=== PATIENT | male | born 1950 | race Caucasian/White ===

== ENCOUNTER → 2018-03-21 | Outpatient (CLI) | payer MEDICARE ==
--- NOTE | 2018-03-21 15:36 | XCELERA REPORT ---
[address] [address] Lower Extremity Venous Evaluation Name: PHILLY PIERRE Age: 67 yrs Gender: Male : 1950 Patient Status: Outpatient Patient Location: Study Date: 03/21/2018 01:39 PM Procedure: Color flow and duplex imaging of the veins of the right lower extremity as well as the left Common Femoral vein. Reason For Study: RLE PAIN Ordering Physician: CHANTELL VELASQUEZ Performed By: Carlyle Carolina Right Sided Venous Evaluation Normal vessel filling wall to wall, compression and augmentation as well as Colour flow down to the infrageniculate veins. Left Sided Venous Evaluation The left common femoral vein is fully compressible. Spontaneous and phasic flow is present in the left common femoral vein. Interpretation Summary No duplex evidence of DVT or obstruction in the right lower extremity nor in the left Common Femoral vein. : CHANTELL VELASQUEZ > Julius Painter
== END ==
LOC: SP 12:40
PROVIDERS: ATTEND Orthopaedic Surgery
DX: M79.661 Pain in right lower leg (principal)
CPT/HCPCS: 93971

== ENCOUNTER → 2018-03-21 | Outpatient (CLI) | payer MEDICARE ==
[2018-03-21 15:08] LABS: ABSOLUTE BASOPHILS # (AUTO) 0.1 10^3/uL (0.0-0.2); ABSOLUTE EOSINOPHILS # (AUTO) 0.3 10^3/uL (0.0-0.6); ABSOLUTE LYMPHOCYTES (AUTO) 1.7 10^3/uL (0.5-4.7); ABSOLUTE MONOCYTES (AUTO) 0.6 10^3/uL (0.1-1.4); ABSOLUTE NEUT (AUTO) 6.5 10^3/uL (1.7-8.2); BASOPHILS % (AUTO) 1.2 % (0-2); EOSINOPHILS % (AUTO) 3.6 % (0-6); HEMATOCRIT 37.2 % (37.9-51.0); HEMOGLOBIN 12.5 g/dL (13.5-17.0); LYMPHOCYTES % (AUTO) 18.1 % (13-45); MEAN CORPUSCULAR HEMOGLOBIN 29.3 pg (27.0-33.4); MEAN CORPUSCULAR HGB CONC 33.5 g/dL (32.0-36.0); MEAN CORPUSCULAR VOLUME 88 fl (80-97); MONOCYTES % (AUTO) 6.8 % (3-13); RED BLOOD COUNT 4.25 10^6/uL (4.35-5.55); RED CELL DISTRIBUTION WIDTH 14.7 % (11.5-14.0); SEGMENTED NEUTROPHILS % (AUTO) 70.3 % (42-78); TOTAL CELLS COUNTED % (AUTO) 100 %; WHITE BLOOD COUNT 9.2 10^3/uL (4.0-10.5)
[2018-03-21 15:35] LABS: CALCIUM PYROPHOSPHATE CRYSTALS NONE OBSERVED; MONOSODIUM URATE CRYSTALS NONE OBSERVED; OTHER CRYSTALS NONE OBSERVED
[2018-03-21 15:52] LABS: PLATELET COUNT 218 10^3/uL (150-450)
[2018-03-21 16:00] LABS: FLUID APPEARANCE TURBID; FLUID COLOR RED; FLUID SOURCE KNEE; FLUID TYPE SYNOVIAL; FLUID VISCOSITY SLIGHTLY VISCOUS
[2018-03-21 16:03] LABS: ERYTHROCYTE SEDIMENTATION RATE 27 mm/hr (0-20)
== END ==
LOC: OD 14:14
PROVIDERS: ATTEND Orthopaedic Surgery
DX: M25.561 Pain in right knee (principal); R60.9 Edema, unspecified; M25.50 Pain in unspecified joint
CPT/HCPCS: 36415; 85025; 85652; 86140; 87070; 87075; 87205; 89050; 89060

== ENCOUNTER 2018-05-21 13:54 | Emergency (ER) | payer MEDICARE ==
[2018-05-21 14:03] VITALS: BP 130/70
--- NOTE | 2018-05-21 14:16 | ER Document Report ---
ED Burn/Smoke/Toxic Fumes - General Chief Complaint: Burn Stated Complaint: BURN LEFT ARM AND CHEST Time Seen by Provider: 05/21/18 14:07 Mode of Arrival: Ambulatory Information source: Patient TRAVEL OUTSIDE OF THE [place] IN LAST 30 DAYS: No - HPI Patient complains to provider of: Burn Where: Home Quality of pain: Burning Severity: Mild Pain Level: 1 Context: Hot liquid Associated Symptoms: None Other injuries: None - Related Data Allergies/Adverse Reactions: codeine [Codeine] Allergy (Unknown, Verified 10/29/13 06:28) Past Medical History - Social History Smoking Status: Unknown if Ever Smoked Family History: Reviewed & Not Pertinent Patient has suicidal ideation: No Patient has homicidal ideation: No - Past Medical History Cardiac Medical History: Reports: Hx Hypercholesterolemia, Hx Hypertension Endocrine Medical History: Reports: Hx Diabetes Mellitus Type 2 Renal/ Medical History: Denies: Hx Peritoneal Dialysis GI Medical History: Reports: Hx Gastroesophageal Reflux Disease Past Surgical History: Reports: Hx Gastric Bypass Surgery, Hx Orthopedic Surgery - Left Knee Sx x 4 - Immunizations Hx Diphtheria, Pertussis, Tetanus Vaccination: - unknown Review of Systems - Review of Systems Constitutional: denies: Chills, Fever EENT: No symptoms reported Cardiovascular: No symptoms reported Respiratory: denies: Cough, Short of breath Gastrointestinal: No symptoms reported. denies: Abdominal pain, Diarrhea, Nausea, Vomiting Genitourinary: No symptoms reported Male Genitourinary: No symptoms reported Musculoskeletal: No symptoms reported Skin: Lesions Hematologic/Lymphatic: denies: Anemia, Easy bleeding Neurological/Psychological: No symptoms reported -: Yes All other systems reviewed and negative Physical Exam - Vital signs Vitals: Temp Pulse Resp BP Pulse Ox 97.6 F 98 28 H 130/70 H 99 05/21/18 14:01 05/21/18 14:01 05/21/18 14:01 05/21/18 14:01 05/21/18 14:01 - General General appearance: Appears well, Alert In distress: None - HEENT Head: Normocephalic, Atraumatic Eyes: Normal Pupils: PERRL - Respiratory Respiratory status: No respiratory distress Chest status: Nontender Breath sounds: Normal Chest palpation: Normal - Cardiovascular Rhythm: Regular Heart sounds: Normal auscultation Murmur: No Notes: First degree burn to the anterior chest wall. - Abdominal Inspection: Normal Distension: No distension Bowel sounds: Normal Tenderness: Nontender Organomegaly: No organomegaly - Back Back: Normal, Nontender - Extremities Forearm: Other - Second-degree burn to the left forearm. - Neurological Neuro grossly intact: Yes Cognition: Normal Orientation: AAOx4 [place] Coma Scale Eye Opening: Spontaneous Sveta Coma Scale Verbal: Oriented [place] Coma Scale Motor: Obeys Commands Sveta Coma Scale Total: 15 Speech: Normal Motor strength normal: LUE, RUE, LLE, RLE Sensory: Normal - Psychological Associated symptoms: Normal affect, Normal mood - Skin Skin Temperature: Warm Skin Moisture: Dry Irregularity with: Other - Second-degree burn to the left forearm. Course - Vital Signs Vital signs: Temp Pulse Resp BP Pulse Ox 97.6 F 98 19 130/70 H 99 05/21/18 14:01 05/21/18 14:01 05/21/18 14:33 05/21/18 14:01 05/21/18 14:01 - Transfer of Care Notes: 05/21/18 15:37 First and second-degree burn. Discharge - Discharge Clinical Impression: Second degree burn injury Condition: Stable Disposition: HOME, SELF-CARE Instructions: [facility] ([facility]) Additional Instructions: Please follow-up with your primary doctor tomorrow morning. Return to the emergency room if her condition worsens. Prescriptions: Mupirocin [Bactroban 2% Ointment 22 gm] 22 applic TP TID #1 tube Referrals: CHANTELL VELASQUEZ MD [Primary Care Provider] - Follow up as needed
== END 2018-05-21 14:33 | disposition home or self-care (01) ==
LOC: ER 13:54
DX: T21.11XA Burn of first degree of chest wall, initial encounter (principal); T22.212A Burn of second degree of left forearm, initial encounter; T31.0 Burns involving less than 10% of body surface; X12.XXXA Contact with other hot fluids, initial encounter
CPT/HCPCS: 99283

== ENCOUNTER → 2018-06-17 | Outpatient (CLI) | payer MEDICARE ==
[2018-06-17 09:57] LABS: ABSOLUTE BASOPHILS # (AUTO) 0.1 10^3/uL (0.0-0.2); ABSOLUTE EOSINOPHILS # (AUTO) 0.5 10^3/uL (0.0-0.6); ABSOLUTE LYMPHOCYTES (AUTO) 2.5 10^3/uL (0.5-4.7); ABSOLUTE MONOCYTES (AUTO) 0.9 10^3/uL (0.1-1.4); ABSOLUTE NEUT (AUTO) 4.9 10^3/uL (1.7-8.2); BASOPHILS % (AUTO) 0.9 % (0-2); EOSINOPHILS % (AUTO) 5.9 % (0-6); HEMATOCRIT 37.4 % (37.9-51.0); HEMOGLOBIN 12.6 g/dL (13.5-17.0); LYMPHOCYTES % (AUTO) 27.6 % (13-45); MEAN CORPUSCULAR HGB CONC 33.6 g/dL (32.0-36.0); MEAN CORPUSCULAR VOLUME 86 fl (80-97); MONOCYTES % (AUTO) 10.3 % (3-13); PLATELET COUNT 311 10^3/uL (150-450); RED BLOOD COUNT 4.33 10^6/uL (4.35-5.55); RED CELL DISTRIBUTION WIDTH 13.7 % (11.5-14.0); SEGMENTED NEUTROPHILS % (AUTO) 55.3 % (42-78); TOTAL CELLS COUNTED % (AUTO) 100 %; WHITE BLOOD COUNT 8.9 10^3/uL (4.0-10.5)
[2018-06-17 10:07] LABS: INTERNATIONAL RATION (INR) 0.93; PROTHROMBIN TIME 12.9 SEC (11.4-15.4)
[2018-06-17 10:24] LABS: APPEARANCE,URINE CLEAR; BILIRUBIN,URINE NEGATIVE (NEGATIVE); COLOR,URINE YELLOW; GLUCOSE, URINE NEGATIVE (NEGATIVE); KETONES,URINE NEGATIVE (NEGATIVE); LEUKOCYTE ESTERASE,URINE NEGATIVE (NEGATIVE); NITRITE,URINE NEGATIVE (NEGATIVE); PROTEIN,URINE NEGATIVE (NEGATIVE)
[2018-06-17 10:25] LABS: URINE SPECIFIC GRAVITY 1.019
== END ==
LOC: OD 08:56
PROVIDERS: ATTEND Pain Medicine Interventional Pain Medicine
DX: D68.8 Other specified coagulation defects (principal)
CPT/HCPCS: 36415; 81001; 85025; 85610; 85730

== ENCOUNTER 2018-07-29 08:42 | Day surgery (SDC) | payer MEDICARE ==
[2018-07-09 12:57] LABS: HEMATOCRIT 38.7 % (37.9-51.0); HEMOGLOBIN 12.6 g/dL (13.5-17.0); MEAN CORPUSCULAR HEMOGLOBIN 28.2 pg (27.0-33.4); MEAN CORPUSCULAR HGB CONC 32.6 g/dL (32.0-36.0); MEAN CORPUSCULAR VOLUME 86 fl (80-97); PLATELET COUNT 287 10^3/uL (150-450); RED BLOOD COUNT 4.47 10^6/uL (4.35-5.55); RED CELL DISTRIBUTION WIDTH 14.1 % (11.5-14.0); WHITE BLOOD COUNT 8.7 10^3/uL (4.0-10.5)
[2018-07-09 13:03] LABS: INTERNATIONAL RATION (INR) 0.94
[2018-07-09 13:04] LABS: PARTIAL THROMBOPLASTIN TIME 36.6 SEC (23.5-35.8)
--- NOTE | 2018-07-09 19:19 | EKG REPORT ---
SEVERITY:- OTHERWISE NORMAL ECG - SINUS RHYTHM ATRIAL PREMATURE COMPLEX : Confirmed by: Matilde Fischer MD 09-Jul-2018 19:18:51
[2018-07-10 13:04] LABS: APPEARANCE,URINE CLEAR; BILIRUBIN,URINE NEGATIVE (NEGATIVE); COLOR,URINE YELLOW; GLUCOSE, URINE NEGATIVE (NEGATIVE); KETONES,URINE NEGATIVE (NEGATIVE); LEUKOCYTE ESTERASE,URINE NEGATIVE (NEGATIVE); NITRITE,URINE NEGATIVE (NEGATIVE); PROTEIN,URINE NEGATIVE (NEGATIVE); URINE SPECIFIC GRAVITY 1.021
[~2018-07-29 08:42] MED LIST: CEFAZOLIN 1 GM/D5W RTU 1 GM/50 ML RTUPB IV PRN; LACTATED RINGERS 1000 ML IV PRN
[2018-07-29] MEDS ORDERED: CEFAZOLIN 1 GM/D5W RTU 1 GM/50 ML RTUPB IV ONE (09:41)
[2018-07-29] MEDS ORDERED: FAMOTIDINE INJ/PF 20 MG/2 ML SDV IV ONE (09:56)
[2018-07-29] MEDS ORDERED: ALBUTEROL SULFATE 0.083% NEB 2.5 MG/3 ML AMPUL NEB ONE (10:06)
[2018-07-29] MEDS ORDERED: LIDOCAINE 1% INJ-PF (10 MG/ML) 30 ML SDV ONE (10:23)
[2018-07-29] MEDS ORDERED: SODIUM BICARBONATE 8.4% INJ 50 MEQ/50 ML DISP.SYRIN ONE (10:23)
[2018-07-29] MEDS ORDERED: BUPIVACAINE HCL 0.25% /EPINEPHRINE INJ/PF 30 ML SDV ONE (10:24)
[2018-07-29] MEDS ORDERED: MIDAZOLAM 2 MG/2 ML INJ ONE (11:36)
[2018-07-29] MEDS ORDERED: FENTANYL CITRATE INJ/PF 100 MCG/2 ML AMPUL ONE (11:36)
[2018-07-29] MEDS ORDERED: PROPOFOL INJ 200 MG/20 ML VIAL IV ONE (11:37)
[2018-07-29] MEDS ORDERED: FENTANYL CITRATE INJ/PF 100 MCG/2 ML AMPUL IV PRN ×3 (12:12)
[2018-07-29] MEDS ORDERED: MEPERIDINE HCL/PF INJ 25 MG/1 ML DISP.SYRIN IV PRN (12:12)
[2018-07-29] MEDS ORDERED: PROMETHAZINE HCL INJ 25 MG/1 ML VIAL IV PRN (12:12)
[2018-07-29] MEDS ORDERED: DIPHENHYDRAMINE HCL 50 MG/ML VIAL IV PRN (12:12)
[2018-07-29] MEDS ORDERED: CEFAZOLIN INJ 1 GM VIAL ONE (13:04)
--- NOTE | 2018-07-29 13:54 | RADIOLOGY REPORT (SQ) ---
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 FLUOROSCOPY TIME: 2.9 minutes 17 digital images saved to PACS. TECHNIQUE: Intra-operative images acquired during surgical procedure to evaluate progress. NUMBER OF IMAGES: 17 digital images saved to pac's LIMITATIONS: None. FINDINGS: Intra procedural imaging and fluoro during neurostimulator electrode placement by Dr. Shoaib dillon. Please see the operative report for further details IMPRESSION: Intra procedural imaging and fluoro COMMENT: Quality ID [id number]: Final reports for procedures using fluoroscopy that document radiation exp osure indices, or exposure time and number of fluorographic images (if radiation exposure indices are not available) Please consult full operative report of the attending physician for description of the procedure. TECHNICAL DOCUMENTATION: JOB ID: [id number] [employer]- All Rights Reserved Reading location - IP/workstation name: [email or web address]
--- NOTE | 2018-07-29 13:54 | RADIOLOGY REPORT (SQ) ---
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 FLUOROSCOPY TIME: 2.9 minutes 17 digital images saved to PACS. TECHNIQUE: Intra-operative images acquired during surgical procedure to evaluate progress. NUMBER OF IMAGES: 17 digital images saved to pac's LIMITATIONS: None. FINDINGS: Intra procedural imaging and fluoro during neurostimulator electrode placement by Dr. Shoaib dillon. Please see the operative report for further details IMPRESSION: Intra procedural imaging and fluoro COMMENT: Quality ID 145: Final reports for procedures using fluoroscopy that document radiation exp osure indices, or exposure time and number of fluorographic images (if radiation exposure indices are not available) Please consult full operative report of the attending physician for description of the procedure. TECHNICAL DOCUMENTATION: JOB ID: [id number] [employer]- All Rights Reserved Reading location - IP/workstation name: [email or web address]
[2018-07-29 18:21] VITALS: BP 109/67
--- NOTE | 2018-09-17 09:32 | OPERATIVE REPORT E ---
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 PROCEDURES: 1. Surgical implantation of right and left spinal cord stimulating electrodes under fluoroscopic guidance. 2. Implantation of a reprogrammable, rechargeable [employer]onic pulse generator. 3. Complex programming. SURGEON: SARA ARTEAGA M.D. ANESTHESIA: MAC. PHYSICIAN RELATIONS SPECIALIST: Georgina Atkinson M.D. BLOOD LOSS: Minimal. SPECIMENS REMOVED: None. INDICATION: Successful trial of outpatient spinal cord stimulation. DESCRIPTION OF PROCEDURE: After obtaining informed consent and advising the patient of the risks and benefits, including serious neurological injury, bleeding, infection, aggravation of pain, paralysis, allergic reaction, and , the patient was taken to the operating room and placed comfortably in the prone position. Monitors were applied. MAC anesthesia was administered. He was then prepped with chlorhexidine with appropriate drying time and draped. Fluoroscopy was utilized to evaluate the spine. It should be noted the pulse generator site had been predetermined and marked over the right gluteal region. Using fluoroscopy, the lumbar spine was evaluated and a suitable entrance site to the T12-L1 interspace was identified. Local anesthesia was applied and 1% lidocaine with bicarb to the midline lumbar region as well as to the gluteal region at the pulse generator site. A 0.25% bupivacaine with epinephrine was then applied in the deeper subcutaneous tissues. Sharp and blunt dissection were then performed in both regions to create suitable working zones. Hemostasis was obtained with electrocautery as necessary. In the lumbar region, once a suitable working zone was placed, was used for retraction. The paraspinal musculature then was anesthetized with a spinal needle using 1% lidocaine down to the lamina and ligamentum flavum at the T12-L1 interspace bilaterally. A 14-gauge Tuohy needle was then inserted beginning on the right and then the left. The epidural space was entered without difficulty. Electrodes were then advanced up to the T8 region, as in mid T8 and mid T10 region on both sides. Trial stimulation was initiated and was successful in giving a good pattern of stimulation for the patient. The decision was made to complete the implant. Pursestrings using sling were placed around each needle followed by a distal stay suture. The right needle was then removed as well as the stylette of an electrode. The stay suture was then secured and the pursestring was secured to the anchor. This was repeated on the left. The leads were then tunneled to the pulse generator pocket and connected to the pulse generator without difficulty. All hex nuts were secured. Connectivity and impedance was checked and it was all satisfactory. The wounds were then inspected again for hemostasis. When this was satisfactory, each wound was copiously irrigated with Betadine-containing irrigation solution. The wounds were then closed with 3-0 Mersilene and an inverted vertical mattress suture over the pulse generator followed by Dermabond, tape, and cement with an appropriate occlusive dressing. The lumbar incision was closed with 3 layers using 3-0 Vicryl for deeper and lesions and then skin was closed with elton and occlusive dressing. The patient was then taken to the PACU for further postoperative care and monitoring. He did well and was released for outpatient followup. DICTATING PHYSICIAN: SARA ARTEAGA M.D. [id number] PHY#: [id number] ID: [id number] JOB#: [id number] ACCT: [id number] cc:SARA ARTEAGA M.D. >
--- NOTE | 2018-09-17 09:32 | OPERATIVE REPORT E ---
Operative Report NAME: PHILLY PIERRE : 1950 AGE: 68Y DATE OF SURGERY: 07/29/2048 ROOM: PREOPERATIVE DIAGNOSIS: POST LAMINECTOMY SYNDROME WITH LUMBAR RADICULOPATHY AND CHRONIC PAIN SYNDROME. POSTOPERATIVE DIAGNOSIS: POST LAMINECTOMY SYNDROME WITH LUMBAR RADICULOPATHY AND CHRONIC PAIN SYNDROME. OPERATION: Implantation of spinal cord stimulating system to include rechargeable re-programmable pulse generator and 2 Octrodes, fluoroscopy for needle placement and complex spinal cord stimulating programming. SURGEON: SARA ARTEAGA M.D. RACING MANAGER: Georgina Atkinson MD ANESTHESIA: MAC ESTIMATED BLOOD LOSS: 10 mL. TISSUE REMOVED OR ALTERED: None. INDICATION: Successful outpatient trial of spinal cord stimulation. PROCEDURE: After obtaining informed consent advising the patient of the risks and benefits including serious neurological injury, bleeding, infection, failure to obtain pain relief, lead movement, paralysis, allergic reaction, and he was taken to the operating room and placed comfortably in the prone position. Comfort was assessed visually and verbally. MAC anesthesia was administered. The patient was prepped with Chlorhexidine with the appropriate drying time in 3 minutes prior to draping. After draping, the lumbar spine was evaluated under fluoroscopy and suitable entrance site and location for the incision was identified. Local anesthesia was applied, 1% lidocaine with bicarb to the midline lumbar incision as well as to the right gluteal region at the preselected site for the pulse generator. Sharp and blunt dissection were performed down in both regions. Electrocautery was used as necessary. Suitable working space was created in the lumbar incision and Sarahi was placed to retract the tissues. Using a spinal needle, 22-gauge, with additional 1% lidocaine with bicarb, the tissues deep were anesthetized down to the lumbar lamina at the T12-L1 interspace. Beginning on the left, a 6-inch Touhy needle was inserted and entering into the epidural space without difficulty with a loss of resistance to saline technique. No heme, cerebrospinal fluid, or paresthesias were noted. Octrode was placed through this and advanced nicely in the midline. Lateral view was taken. This was repeated on the right side and again after successful needle placement, the electrode was passed into the epidural space to remain in the posterior location. The leads were then advanced simultaneously up to approximately the mid T8 region. Once suitable lead placement was obtained, a trial of stimulation was initiated. Patient had good stimulation on all desired locations. Pursestrings were placed around each needle followed by distal stay sutures using 0 Mersilene. Beginning on the left, the needle and Stylet of the electrode were removed. The pursestring was secured to the Silastic cylindrical anchor. The stay suture was then tied to the anchor as well. This was repeated on the right without difficulty. Some mild distraction occurred on the left but was still in consistent location from his trial. Both wounds were then copiously irrigated. Tunneling tool utilized after anesthetizing the subcutaneous tissue to bring the leads from the midline incision to the lumbar pocket. The leads were connected to the pulse generator and secured and impedance was checked and was satisfactory. The wounds were further irrigated with beta-containing irrigation solution. The leads were coiled with 1 loop in the lumbar incision and tacked down with 3-0 Ethibond ties. The deep tissues were then closed with the interrupted vertical inverted mattress sutures using 3-0 Polysorb followed by a more superficial layer of the same. The skin was then stapled in a lumbar region. The pulse generator pocket was closed with a single layer of inverted vertical mattress sutures using 3-0 Polysorb followed by Dermabond tape and Cement. Telfa dressings were placed when the Cement was dry. Followed by Tegaderm and sponge dressing. Patient did well and was taken to the PACU for further postoperative care and monitoring. DICTATING PHYSICIAN: SARA ARTEAGA M.D. [id number] PHY#: [id number] ID: [id number] JOB#: [id number] ACCT: [id number] cc:SARA ARTEAGA M.D. >
== END 2018-07-29 15:50 | disposition home or self-care (01) ==
LOC: OROUT 08:42
PROVIDERS: ATTEND Student in an Organized Health Care Education/Training Program
DX: G89.4 Chronic pain syndrome (principal); M54.16 Radiculopathy, lumbar region; M54.5 Low back pain; M25.512 Pain in left shoulder; M19.011 Primary osteoarthritis, right shoulder; M25.511 Pain in right shoulder; Z79.01 Long term (current) use of anticoagulants; Z79.82 Long term (current) use of aspirin; Z79.899 Other long term (current) drug therapy; Z79.51 Long term (current) use of inhaled steroids; Z79.84 Long term (current) use of oral hypoglycemic drugs; J45.909 Unspecified asthma, uncomplicated; I10 Essential (primary) hypertension; Z79.891 Long term (current) use of opiate analgesic; J44.9 Chronic obstructive pulmonary disease, unspecified; E11.9 Type 2 diabetes mellitus without complications; D64.9 Anemia, unspecified; Z88.5 Allergy status to narcotic agent
CPT/HCPCS: 93005; 36415; 82962; 85027; 85610; 85730; 81001; 72080; 93010; 94640; 63685; 63650; C1778; J2250; J3490 ×3; J0690 ×2; J3010; J2704; S0028; A9270; 1936

== ENCOUNTER → 2018-10-15 | Outpatient (CLI) | payer MEDICARE ==
[2018-10-15 12:01] LABS: ABSOLUTE BASOPHILS # (AUTO) 0.1 10^3/uL (0.0-0.2); ABSOLUTE EOSINOPHILS # (AUTO) 0.5 10^3/uL (0.0-0.6); ABSOLUTE LYMPHOCYTES (AUTO) 1.9 10^3/uL (0.5-4.7); ABSOLUTE MONOCYTES (AUTO) 0.8 10^3/uL (0.1-1.4); ABSOLUTE NEUT (AUTO) 6.6 10^3/uL (1.7-8.2); BASOPHILS % (AUTO) 1.2 % (0-2); EOSINOPHILS % (AUTO) 4.8 % (0-6); HEMATOCRIT 35.8 % (37.9-51.0); MEAN CORPUSCULAR HEMOGLOBIN 27.8 pg (27.0-33.4); MEAN CORPUSCULAR HGB CONC 33.6 g/dL (32.0-36.0); MEAN CORPUSCULAR VOLUME 83 fl (80-97); MONOCYTES % (AUTO) 8.2 % (3-13); PLATELET COUNT 292 10^3/uL (150-450); RED BLOOD COUNT 4.33 10^6/uL (4.35-5.55); RED CELL DISTRIBUTION WIDTH 15.1 % (11.5-14.0); SEGMENTED NEUTROPHILS % (AUTO) 66.8 % (42-78); TOTAL CELLS COUNTED % (AUTO) 100 %; WHITE BLOOD COUNT 9.9 10^3/uL (4.0-10.5)
[2018-10-15 12:47] LABS: ERYTHROCYTE SEDIMENTATION RATE 36 mm/hr (0-20)
== END ==
LOC: LAB 11:33
PROVIDERS: ATTEND Physician Assistant
DX: M25.561 Pain in right knee (principal)
CPT/HCPCS: 36415; 85025; 85652; 86140

== ENCOUNTER → 2019-04-03 | Outpatient (CLI) | payer MEDICARE | LOC: RAD 13:44 | PROVIDERS: ATTEND Physician Assistant | DX: M25.561 Pain in right knee (principal); M79.604 Pain in right leg ==

== ENCOUNTER 2019-10-16 09:38 | Inpatient (IN) | payer MEDICARE ==
[2019-10-16] MEDS ORDERED: ACETAMINOPHEN 325 MG TABLET PO ONE (10:45)
--- NOTE | 2019-10-16 10:49 | ER Document Report ---
ED Medical Screen (RME) - General Chief Complaint: Elbow Injury Stated Complaint: FALL/RIGHT ELBOW PAIN Time Seen by Provider: 10/16/19 10:39 Primary Care Provider: SY MENSAH PA [Primary Care Provider] - Follow up as needed TRAVEL OUTSIDE OF THE [place] IN LAST 30 DAYS: No - HPI Notes: 10/16/19 10:45 Patient is a 69-year-old male with a history of chronic back pain, chronic rt shoulder pain, dementia, CVA x2, hypertension, "prediabetic" who presents with complaining of having a dry cough and congestion for the past 2 days with increased generalized weakness associated resulting in a fall prior to arrival. Patient was walking with his walker when he lost balance and fell into a door on his right arm and then slowly to the ground thereafter. He did not hit his head or lose consciousness. Patient states that he did not injure any other part of his body. states that his weakness prevented him from being able to get up on his own so they had to call EMS. Pt is baseline per otherwise. Denies any headache, fever, head injury, neck pain, changes in vision/speech/mentation/hearing, sore throat, chest pain, palpitations, syncope, shortness of breath, wheeze, dyspnea, abdominal pain, nausea/vomiting/diarrhea, urinary retention, dysuria, hematuria, loss of control of bowel or bladder, numbness/tingling, saddle anesthesia, muscle paralysis, or rash. I have treated and performed a rapid initial assessment of this patient. A comprehensive ED assessment and evaluation of the patient, analysis of test results and completion of medical decision making process will be conducted by additional ED providers. PHYSICAL EXAMINATION: GENERAL: Well-appearing, well-nourished and in no acute distress. A&Ox3. Answers questions appropriately. Neck: no midline tenderness. Pelvis: stable RUE: + swelling and ?deformity upper arm with tenderness associated. + tenderness at the elbow and rt forearm as well. Pulse 2+. N/V intact distal. Neuro: cranial nerves grossly intact. GCS 15. Lungs: grossly ctab - Related Data Allergies/Adverse Reactions: codeine [Codeine] Allergy (Unknown, Verified 07/28/18 11:11) zolpidem [From Ambien] Allergy (Verified 07/28/18 11:11) Past Medical History - Past Medical History Cardiac Medical History: Reports: Hx Hypercholesterolemia Denies: Hx Coronary Artery Disease, Hx Heart Attack, Hx Hypertension Pulmonary Medical History: Reports: Hx Asthma Denies: Hx Bronchitis, Hx COPD, Hx Pneumonia Neurological Medical History: Denies: Hx Cerebrovascular Accident, Hx Seizures Endocrine Medical History: Reports: Hx Diabetes Mellitus Type 2 Renal/ Medical History: Denies: Hx Peritoneal Dialysis GI Medical History: Reports: Hx Gastroesophageal Reflux Disease Musculoskeltal Medical History: Denies Hx Arthritis Past Surgical History: Reports: Hx Gastric Bypass Surgery, Hx Orthopedic Surgery - Left Knee Sx x 4 - Immunizations Hx Diphtheria, Pertussis, Tetanus Vaccination: Yes Physical Exam - Vital signs Vitals: Temp Pulse Resp BP Pulse Ox 97.5 F 94 16 103/71 94 10/16/19 10:10/16/19 10:10/16/19 10:10/16/19 10:05 10/16/19 10:05 Course - Vital Signs Vital signs: Temp Pulse Resp BP Pulse Ox 97.5 F 94 16 103/71 94 10/16/19 10:05 10/16/19 10:05 10/16/19 10:05 10/16/19 10:05 10/16/19 10:05 Doctor's Discharge - Discharge Referrals: SY MENSAH PA [Primary Care Provider] - Follow up as needed
[2019-10-16 11:19] LABS: ABSOLUTE LYMPHOCYTES (AUTO) 0.9 10^3/uL (0.5-4.7); ABSOLUTE MONOCYTES (AUTO) 1.1 10^3/uL (0.1-1.4); BASOPHILS % (AUTO) 0.6 % (0-2); EOSINOPHILS % (AUTO) 0.3 % (0-6); HEMATOCRIT 35.4 % (37.9-51.0); HEMOGLOBIN 11.6 g/dL (13.5-17.0); LYMPHOCYTES % (AUTO) 10.8 % (13-45); MEAN CORPUSCULAR HEMOGLOBIN 24.9 pg (27.0-33.4); MEAN CORPUSCULAR HGB CONC 32.8 g/dL (32.0-36.0); MEAN CORPUSCULAR VOLUME 76 fl (80-97); MONOCYTES % (AUTO) 13.6 % (3-13); PLATELET COUNT 370 10^3/uL (150-450); RED BLOOD COUNT 4.65 10^6/uL (4.35-5.55); RED CELL DISTRIBUTION WIDTH 16.6 % (11.5-14.0); SEGMENTED NEUTROPHILS % (AUTO) 74.7 % (42-78); TOTAL CELLS COUNTED % (AUTO) 100 %
[2019-10-16 11:45] LABS: A TYPE INFLUENZA AG NEGATIVE (NEGATIVE); ALBUMIN 3.4 g/dL (3.5-5.0); ALKALINE PHOSPHATASE 169 U/L (38-126); ANION GAP 8 (5-19); ASPARTATE AMINO TRANSFERASE 43 U/L (17-59); B INFLUENZA AG NEGATIVE (NEGATIVE); BILIRUBIN,TOTAL 0.4 mg/dL (0.2-1.3); BLOOD UREA NITROGEN 13 mg/dL (7-20); CARBON DIOXIDE 31 mmol/L (22-30); CHLORIDE 95 mmol/L (98-107); GLUCOSE 106 mg/dL (75-110); POTASSIUM 4.2 mmol/L (3.6-5.0)
--- NOTE | 2019-10-16 11:54 | RADIOLOGY REPORT (SQ) ---
EXAM DESCRIPTION: FOREARM RIGHT COMPLETED DATE/TIME: 10/16/2019 11:45 am REASON FOR STUDY: pain s/p fall COMPARISON: None. NUMBER OF VIEWS: Two views. TECHNIQUE: Two radiographic images acquired of the right forearm, including elbow and wrist in at le ast one projection. LIMITATIONS: None. FINDINGS: MINERALIZATION: Decreased. BONES: No acute fractures or dislocation. Degenerative changes about the wrist and elbow. SOFT TISSUES: No obvious swelling or foreign body. OTHER: Paper clip overlies distal forearm. Metallic density overlies proximal forearm on a single pr ojection. IMPRESSION: No definite acute bony abnormality of the right forearm. Decreased mineralization with degenerative changes about the elbow and wrist. TECHNICAL DOCUMENTATION: JOB ID: [id number] [employer]- All Rights Reserved Reading location - IP/workstation name: [email or web address]
--- NOTE | 2019-10-16 11:56 | RADIOLOGY REPORT (SQ) ---
EXAM DESCRIPTION: HUMERUS RIGHT COMPLETED DATE/TIME: 10/16/2019 11:45 am REASON FOR STUDY: pain s/p fall, ?deformity noted COMPARISON: None. NUMBER OF VIEWS: Two views. TECHNIQUE: Two radiographic images were acquired of the right humerus to include elbow and shoulder in at least one projection. LIMITATIONS: None. FINDINGS: MINERALIZATION: Decreased. BONES: Transversely oriented fracture about the midshaft right humerus. There is 1 shaft width later al displacement of the distal fracture fragment and lateral angulation. No additional fractures. De generative changes about the shoulder and elbow. SOFT TISSUES: Soft tissue swelling about the arm. OTHER: No other significant finding. IMPRESSION: Decreased mineralization with transversely oriented fracture about the midshaft right hu merus. 1 shaft width lateral displacement of the distal fracture fragment. TECHNICAL DOCUMENTATION: JOB ID: [id number] [employer]- All Rights Reserved Reading location - IP/workstation name: [email or web address]
--- NOTE | 2019-10-16 11:57 | RADIOLOGY REPORT (SQ) ---
EXAM DESCRIPTION: CHEST SINGLE VIEW COMPLETED DATE/TIME: 10/16/2019 11:46 am REASON FOR STUDY: cough COMPARISON: None. EXAM PARAMETERS: NUMBER OF VIEWS: One view. TECHNIQUE: Single frontal radiographic view of the chest acquired. RADIATION DOSE: NA LIMITATIONS: None. FINDINGS: LUNGS AND PLEURA: Ill-defined right basilar opacities with small associated pleural effusi on. No pneumothorax. Unremarkable left hemithorax. MEDIASTINUM AND HILAR STRUCTURES: No masses. Contour normal. HEART AND VASCULAR STRUCTURES: Borderline enlarged. Aortic atherosclerosis BONES: No acute findings. HARDWARE: Partially visualized spinal stimulator hardware overlies midthoracic spine. OTHER: No other significant finding. IMPRESSION: Right lower lobe pneumonia with small parapneumonic effusion. Recommend follow-up to solution. TECHNICAL DOCUMENTATION: JOB ID: [id number] [employer]- All Rights Reserved Reading location - IP/workstation name: [email or web address]
[2019-10-16] MEDS ORDERED: LEVOFLOXACIN 750 MG/D5W RTU 750 MG/150 ML RTUPB IV ONE (12:06)
[2019-10-16] MEDS ORDERED: FENTANYL CITRATE INJ/PF 100 MCG/2 ML AMPUL IV ONE ×2 (12:07→15:17)
[2019-10-16] MEDS ORDERED: NORMAL SALINE 250 ML IV ONE (12:15)
[2019-10-16] MEDS ORDERED: NORMAL SALINE 1000 ML 1,000 ML IV PRN (13:00)
[2019-10-16] MEDS ORDERED: LEVALBUTEROL HCL NEB 1.25 MG/3 ML AMPUL NEB PRN (13:00)
[2019-10-16] MEDS ORDERED: ACETAMINOPHEN 325 MG TABLET PO PRN (13:00)
[2019-10-16] MEDS ORDERED: DEXTROSE 40% GEL 15 GM TUBE PO PRN ×2 (13:15)
[2019-10-16] MEDS ORDERED: DEXTROSE 50%-WATER 25 GM/50 ML DISP.SYRIN IV PRN ×2 (13:15)
[2019-10-16] MEDS ORDERED: GLUCAGON,HUMAN RECOMB 1 MG INJ IM PRN (13:15)
--- NOTE | 2019-10-16 13:31 | PDOC H&P ---
History of Present Illness Admission Date/PCP: SONYA SIMPSON History of Present Illness: PHILLY PIERRE is a 69 year old male who this morning around 0800 but up to use his walker when he was weak and fell landing on his right arm. He now with a midshaft humerus fracture. No angulation. According to the history the states that about Saturday he started coughing and seemed to become weaker. He normally is able to ambulate with a walker although not very well. No history of fever or chills. A portable chest x-ray done in the emergency room which is not very good shows a possible right lower lobe infiltrate. I am repeating this and getting a two-view. WBC count is normal. Patient is being admitted for possible pneumonia, patient will be started on broad-spectrum antibiotics until further results are in. Orthopedics has been consulted for his midshaft right humerus fracture Past Medical History Cardiac Medical History: Reports: Hyperlipidema Denies: Coronary Artery Disease, Myocardial Infarction, Hypertension Pulmonary Medical History: Reports: Asthma Denies: Bronchitis, Chronic Obstructive Pulmonary Disease (COPD), Pneumonia Neurological Medical History: Denies: Seizures Endocrine Medical History: Reports: Diabetes Mellitus Type 2 GI Medical History: Reports: Gastroesophageal Reflux Disease Musculoskeltal Medical History: Denies: Arthritis Hematology: Reports: Anemia Past Surgical History Past Surgical History: Reports: Gastric Bypass Surgery, Orthopedic Surgery - Left Knee Sx x 4 Social History Smoking Status: Unknown if Ever Smoked - Advance Directive Resuscitation Status: Do Not Resuscitate Family History Family History: Reviewed & Not Pertinent Parental Family History Reviewed: No Children Family History Reviewed: No Sibling(s) Family History Reviewed.: No Medication/Allergy Home Medications: Ascorbic Acid [Vitamin C 500 mg Tablet] 1,000 mg PO DAILY 10/29/13 Aspirin [[place] Aspirin] 81 mg PO DAILY 10/29/13 B2/Vits A,C,E/Lut/Zeaxanth/Min [Icaps Tablet] 2 tab PO BID 10/29/13 Brinzolamide [Azopt] 1 drop OP TID 10/29/13 Latanoprost [Xalatan 0.005% Oph Soln 2.5 ml] 1 drop OP QHS 10/29/13 Metformin HCl [Glucophage] 1,000 mg PO BID 10/29/13 Albuterol Sulfate [Ventolin Hfa] 1 - 2 puff IH Q4 PRN 07/09/18 Ascorbic Acid [Vitamin C] 1,000 mg PO DAILY 07/09/18 Budesonide/Formoterol Fumarate [Symbicort 160-4.5 Mcg Inhaler] 2 puff IH BID 07/09/18 Cyanocobalamin (Vitamin B-12) [Vitamin B12] 1,000 mg PO DAILY 07/09/18 Ergocalciferol (Vitamin D2) [Vitamin D2] 50,000 unit PO .QWEEKLY 07/09/18 Gabapentin 600 mg PO TID 07/09/18 Guaifenesin [Mucinex] 600 mg PO PRN PRN 07/09/18 Magnesium Chloride [Slow-Mag] 71.5 mg PO DAILY 07/09/18 Omeprazole 40 mg PO BID 07/09/18 Pioglitazone HCl 15 mg PO DAILY 07/09/18 Pravastatin Sodium 20 mg PO QHS 07/09/18 Sucralfate [Carafate] 1 gm PO PRN PRN 07/09/18 Temazepam 7.5 mg PO QHS 07/09/18 Allergies/Adverse Reactions: codeine [Codeine] Allergy (Unknown, Verified 07/28/18 11:11) zolpidem [From Ambien] Allergy (Verified 07/28/18 11:11) Review of Systems Constitutional: PRESENT: weakness. ABSENT: chills, fever(s), headache(s), weight gain, weight loss Cardiovascular: ABSENT: chest pain, dyspnea on exertion, edema, orthropnea, palpitations Respiratory: PRESENT: cough Neurological: PRESENT: other - History of dementia Psychiatric: ABSENT: anxiety, depression, homidical ideation, suicidal ideation Physical Exam Vital Signs: Temp Pulse Resp BP Pulse Ox 97.5 F 94 16 103/71 94 10/16/19 10:05 10/16/19 10:05 10/16/19 10:05 10/16/19 10:05 10/16/19 10:05 Intake & Output 10/15/19 10/16/19 10/17/19 06:59 06:59 06:59 Weight 86.8 kg General appearance: PRESENT: no acute distress, well-developed, well-nourished Respiratory exam: PRESENT: decreased breath sounds Cardiovascular exam: PRESENT: RRR. ABSENT: diastolic murmur, rubs, systolic murmur Pulses: PRESENT: normal dorsalis pedis pul Extremities exam: PRESENT: other - Limited range of motion to the right upper extremity secondary to pain Neurological exam: PRESENT: alert, awake, oriented to person, oriented to place, oriented to time, oriented to situation, CN II-XII grossly intact, other - Patient answers all questions appropriately. No obvious dementia. ABSENT: motor sensory deficit Results Laboratory Results: 10/16/19 11:05 10/16/19 11:05 10/16/19 10/16/19 11:05 11:05 WBC 8.0 RBC 4.65 Hgb 11.6 L Hct 35.4 L MCV 76 L MCH 24.9 L MCHC 32.8 RDW 16.6 H Plt Count 370 Seg Neutrophils % 74.7 Sodium 133.9 L Potassium 4.2 Chloride 95 L Carbon Dioxide 31 H Anion Gap 8 BUN 13 Creatinine 0.71 Est GFR ( Amer) > 60 Glucose 106 Calcium 9.0 Total Bilirubin 0.4 AST 43 Alkaline Phosphatase 169 H Total Protein 7.0 Albumin 3.4 L Impressions: Chest X-Ray 10/16/19 10:44 IMPRESSION: Right lower lobe pneumonia with small parapneumonic effusion. Recommend follow-up to resolution. Forearm X-Ray 10/16/19 10:44 IMPRESSION: No definite acute bony abnormality of the right forearm. Decreased mineralization with degenerative changes about the elbow and wrist. Humerus X-Ray 10/16/19 10:44 IMPRESSION: Decreased mineralization with transversely oriented fracture about the midshaft right humerus. 1 shaft width lateral displacement of the distal fracture fragment. Assessment and Plan - Diagnosis (1) Right humeral fracture Is this a current diagnosis for this admission?: Yes (2) Dementia Is this a current diagnosis for this admission?: Yes (3) Pneumonia Is this a current diagnosis for this admission?: Yes (4) Diabetes Is this a current diagnosis for this admission?: Yes - Plan Summary Summary: Patient will be admitted for broad-spectrum IV antibiotics. No leukocytosis. Chest x-ray is being repeated with 2 views Orthopedics will consult concerning humerus fracture - Time Time Spent with patient: 35 or more minutes
--- NOTE | 2019-10-16 14:06 | ER Document Report ---
Entered by GWYN SALDAÑA SCRIBE 10/16/19 1200 Acting as scribe for:RISHI LEARY MD ED General - General Chief Complaint: Fall Injury Stated Complaint: FALL/RIGHT ELBOW PAIN Time Seen by Provider: 10/16/19 10:39 Information source: Patient, Relative - Spouse Notes: 69 year old male presents to the emergency department after a fall this morning. Patient's spouse mentions that they have both had upper respiratory tract infection over the past week and he has had "a hard time walking". Patient's spouse said that patient was using his walker, lost balance on his way to the bathroom and fell. Patient says that his arm "hurts bad". The patient has to use a walker to get around. He has had increased difficulty this week due to increasing weakness associated with his upper respiratory tract infection. Today he lost his balance and fell injuring his right upper arm. TRAVEL OUTSIDE OF THE [place] IN LAST 30 DAYS: No - Related Data Allergies/Adverse Reactions: codeine [Codeine] Allergy (Unknown, Verified 07/28/18 11:11) zolpidem [From Ambien] Allergy (Verified 07/28/18 11:11) Home Medications: Gabapentin, Duloxetine, Metformin, Omeprazole, Tamsulosin, Fentanyl, Trazadone, Atorvastatin, Symbicort Past Medical History - General Information source: Patient - Social History Smoking Status: Former Smoker Cigarette use (# per day): No Chew tobacco use (# tins/day): No Smoking Education Provided: No Frequency of alcohol use: None Drug Abuse: None Occupation: Retired Lives with: Spouse/Significant other Family History: Reviewed & Not Pertinent Patient has suicidal ideation: No Patient has homicidal ideation: No - Past Medical History Cardiac Medical History: Reports: Hx Hypercholesterolemia Pulmonary Medical History: Reports: Hx Asthma Endocrine Medical History: Reports: Hx Diabetes Mellitus Type 2 GI Medical History: Reports: Hx Gastroesophageal Reflux Disease Past Surgical History: Reports: Hx Gastric Bypass Surgery, Hx Orthopedic Surgery - Left Knee Sx x 4 - Immunizations Hx Diphtheria, Pertussis, Tetanus Vaccination: Yes Hx Pneumococcal Vaccination: 09/09/16 Review of Systems - Review of Systems Constitutional: See HPI, Weakness - with walking EENT: No symptoms reported Cardiovascular: No symptoms reported Respiratory: No symptoms reported Gastrointestinal: No symptoms reported Genitourinary: No symptoms reported Male Genitourinary: No symptoms reported Musculoskeletal: See HPI, Other - Right arm pain Skin: No symptoms reported Hematologic/Lymphatic: No symptoms reported Neurological/Psychological: No symptoms reported -: Yes All other systems reviewed and negative Physical Exam - Vital signs Vitals: Temp Pulse Resp BP Pulse Ox 97.5 F 94 16 103/71 94 10/16/19 10:10/16/19 10:10/16/19 10:10/16/19 10:10/16/19 10:05 - Notes Notes: PHYSICAL EXAMINATION: GENERAL: Well-appearing, well-nourished, appears very uncomfortable and is holding his right wrist with his left hand. HEAD: Atraumatic, normocephalic. EYES: Pupils equal round and reactive to light, extraocular movements intact, sclera anicteric, conjunctiva are normal. ENT: nares patent, oropharynx clear without exudates. Moist mucous membranes. NECK: Normal range of motion, supple without lymphadenopathy LUNGS: On auscultation, there seems to be some decreased breath sounds in the right lower lung region. There are some faint wheezes and rhonchi noted when I have the patient take a deep breath and cough.. HEART: Regular rate and rhythm without murmurs ABDOMEN: Soft, nontender, normoactive bowel sounds. Obese. No guarding, no keiko ound. No masses appreciated. EXTREMITIES: Right upper extremity shows tenderness, swelling in the mid humerus region. Right elbow and wrist are uninjured. NEUROLOGICAL: Cranial nerves grossly intact. Normal speech, normal gait. Normal sensory, motor, and reflex exams. PSYCH: Normal mood, normal affect. SKIN: Warm, Dry, normal turgor, no rashes or lesions noted. Course - Vital Signs Vital signs: Temp Pulse Resp BP Pulse Ox 97.5 F 94 16 103/71 94 10/16/19 10:10/16/19 10:10/16/19 10:10/16/19 10:10/16/19 10:05 - Laboratory Result Diagrams: 10/16/19 11:10/16/19 11:05 Laboratory results interpreted by me: 10/16/19 10/16/19 11:05 11:05 Hgb 11.6 L Hct 35.4 L MCV 76 L MCH 24.9 L RDW 16.6 H Lymph % (Auto) 10.8 L [place] % (Auto) 13.6 H Sodium 133.9 L Chloride 95 L Carbon Dioxide 31 H Alkaline Phosphatase 169 H Albumin 3.4 L - Diagnostic Test Radiology reviewed: Image reviewed, Reports reviewed - Chest x-ray shows a right lower lobe pneumonia with small parapneumonic effusion. Right forearm x-ray is unremarkable. Right humerus shows transversely oriented fracture about the midshaft of the right humerus with a 1 shaft width lateral displacement of the distal fracture fragment. - Consults Dr. Vu Time consulted: 12:18 Consulted provider: will see as inpatient SONYA Oakley Time consulted: 12:15 Consulted provider: will come to ER - admit to IMCU Discharge - Discharge Clinical Impression: Viral upper respiratory tract infection with cough, Generalized weakness Humerus shaft fracture Qualifiers: Encounter type: initial encounter Fracture type: closed Fracture morphology: transverse Fracture alignment: displaced Laterality: right Qualified Code(s): S42.321A - Displaced transverse fracture of shaft of humerus, right arm, initial encounter for closed fracture Right lower lobe pneumonia Qualifiers: Pneumonia type: due to unspecified organism Qualified Code(s): J18.9 - Pneumonia, unspecified organism Condition: Stable Disposition: ADMITTED INPATIENT Admitting Provider: Sky (Hospitalist) Unit Admitted: [facility] Scribe Attestation: 10/16/19 12:19 I personally performed the services described in the documentation, reviewed and edited the documentation which was dictated to the scribe in my presence, and it accurately records my words and actions. I personally performed the services described in the documentation, reviewed and edited the documentation which was dictated to the scribe in my presence, and it accurately records my words and actions.
[2019-10-16 14:33] LABS: INTERNATIONAL RATION (INR) 1.02; PROTHROMBIN TIME 13.4 SEC (11.4-15.4)
--- NOTE | 2019-10-16 14:53 | EKG REPORT ---
SEVERITY:- OTHERWISE NORMAL ECG - SINUS RHYTHM BASELINE ARTIFACT : Confirmed by: Matilde Fischer MD 16-Oct-2019 14:51:33
--- NOTE | 2019-10-16 15:17 | RADIOLOGY REPORT (SQ) ---
EXAM DESCRIPTION: CHEST 2 VIEWS COMPLETED DATE/TIME: 10/16/2019 3:00 pm REASON FOR STUDY: Pneumonia COMPARISON: 10/16/2019 EXAM PARAMETERS: NUMBER OF VIEWS: two views TECHNIQUE: Digital Frontal and Lateral radiographic views of the chest acquired. RADIATION DOSE: NA LIMITATIONS: none FINDINGS: LUNGS AND PLEURA: Unchanged right basilar opacities. Likely trace right effusion versus p leural thickening. No pneumothorax. MEDIASTINUM AND HILAR STRUCTURES: Stable. HEART AND VASCULAR STRUCTURES: Stable. BONES: Transverse right midshaft humeral fracture. HARDWARE: None in the chest. OTHER: No other significant finding. IMPRESSION: Unchanged patchy right basilar opacities. Right Midshaft humeral fracture TECHNICAL DOCUMENTATION: JOB ID: [id number] [email or web address] All Rights Reserved Reading location - IP/workstation name: [email or web address]
[2019-10-16] MEDS: INSULIN LISPRO 100 UNIT/ML 3 ML VIAL SUBCUT SCH ×2 (16:30→22:33)
[2019-10-16] MEDS: OXYCODONE-ACETAMINOPHEN 5-325 MG TABLET PO PRN (17:13)
[2019-10-16] MEDS: HYDROMORPHONE HCL INJ/PF 2 MG/ML AMPULE IV PRN ×2 (17:44→22:17)
[2019-10-16] MEDS ORDERED: TRAZODONE HCL 50 MG TABLET PO SCH (19:00)
[2019-10-16] MEDS ORDERED: FENTANYL 25 MCG/HR PATCH.TD72 TD SCH (19:00)
[2019-10-16 20:53] LABS: APPEARANCE,URINE CLEAR; BILIRUBIN,URINE NEGATIVE (NEGATIVE); COLOR,URINE YELLOW; GLUCOSE, URINE NEGATIVE (NEGATIVE); KETONES,URINE TRACE mg/dL (NEGATIVE); PROTEIN,URINE NEGATIVE (NEGATIVE); URINE SPECIFIC GRAVITY 1.015; UROBILINOGEN,URINE NEGATIVE mg/dL (<2.0)
[2019-10-16] MEDS ORDERED: CEFTRIAXONE INJ 1000 MG VIAL ONE (21:44)
[2019-10-16] MEDS: FAMOTIDINE 20 MG TABLET PO SCH (22:18)
[2019-10-16] MEDS: LEVETIRACETAM 500 MG TABLET PO SCH (22:18)
[2019-10-16] MEDS: TRAZODONE HCL 50 MG TABLET PO SCH (22:18)
[2019-10-16] MEDS: CEFTRIAXONE 1 GM/D5W RTU 1 GM/50 ML RTUPB IV SCH (22:19)
[2019-10-16] MEDS: ATORVASTATIN CALCIUM 40 MG TABLET PO SCH (22:33)
[2019-10-17 05:51] LABS: ABSOLUTE LYMPHOCYTES (AUTO) 1.2 10^3/uL (0.5-4.7); ABSOLUTE NEUT (AUTO) 4.1 10^3/uL (1.7-8.2); BASOPHILS % (AUTO) 0.8 % (0-2); EOSINOPHILS % (AUTO) 0.8 % (0-6); HEMATOCRIT 33.2 % (37.9-51.0); LYMPHOCYTES % (AUTO) 18.3 % (13-45); MEAN CORPUSCULAR HEMOGLOBIN 25.1 pg (27.0-33.4); MEAN CORPUSCULAR HGB CONC 33.3 g/dL (32.0-36.0); MEAN CORPUSCULAR VOLUME 75 fl (80-97); MONOCYTES % (AUTO) 15.9 % (3-13); PLATELET COUNT 287 10^3/uL (150-450); RED CELL DISTRIBUTION WIDTH 16.7 % (11.5-14.0); SEGMENTED NEUTROPHILS % (AUTO) 64.2 % (42-78); TOTAL CELLS COUNTED % (AUTO) 100 %; WHITE BLOOD COUNT 6.4 10^3/uL (4.0-10.5)
[2019-10-17 06:17] LABS: ANION GAP 10 (5-19); BLOOD UREA NITROGEN 11 mg/dL (7-20); CALCIUM 8.6 mg/dL (8.4-10.2); CARBON DIOXIDE 24 mmol/L (22-30); CHLORIDE 99 mmol/L (98-107); GLUCOSE 96 mg/dL (75-110)
[2019-10-17] MEDS: INSULIN LISPRO 100 UNIT/ML 3 ML VIAL SUBCUT SCH ×4 (09:46→21:35)
[2019-10-17] MEDS: FLUTICASONE/VILANTEROL 200-25 MCG/DOSE IH SCH (09:55)
[2019-10-17] MEDS: FAMOTIDINE 20 MG TABLET PO SCH ×2 (09:55→21:28)
[2019-10-17] MEDS: GABAPENTIN 300 MG CAPSULE PO SCH ×3 (09:55→17:21)
[2019-10-17] MEDS: LEVETIRACETAM 500 MG TABLET PO SCH ×2 (09:55→21:29)
[2019-10-17] MEDS: METFORMIN HCL 500 MG TABLET PO SCH ×2 (09:55→16:10)
[2019-10-17] MEDS: DULOXETINE HCL 30 MG CAPSULE.DR PO SCH ×2 (09:55→17:21)
[2019-10-17] MEDS: CEFTRIAXONE 1 GM/D5W RTU 1 GM/50 ML RTUPB IV SCH ×2 (09:55→21:29)
[2019-10-17] MEDS: TAMSULOSIN HCL 0.4 MG CAP.SR.24H PO SCH (09:55)
[2019-10-17] MEDS: DOCUSATE SODIUM 100 MG CAPSULE PO SCH (09:55)
[2019-10-17] MEDS: ASPIRIN 81 MG TABLET, CHEWABLE PO SCH (09:55)
[2019-10-17] MEDS: RIVASTIGMINE 4.6 MG/24 HR PATCH.TD24 TD SCH (09:56)
[2019-10-17] MEDS: ENOXAPARIN SODIUM INJ 40 MG/0.4 ML DISP.SYRIN SUBCUT SCH (09:56)
[2019-10-17] MEDS: NYSTATIN TOPICAL POWDER 15 GM TP SCH ×2 (09:57→17:21)
[2019-10-17] MEDS ORDERED: FORMOTEROL FUMARATE IH SCH (10:00)
[2019-10-17] MEDS ORDERED: BUDESONIDE IH SCH (10:00)
[2019-10-17] MEDS ORDERED: [UNRECOGNIZED DRUG - OTHER] IH SCH (10:00)
[2019-10-17] MEDS ORDERED: (PENDING PHARMACY ID) (Metformin Hcl [Metformin Hcl Er] 500 MG) PO SCH (10:00)
[2019-10-17] MEDS ORDERED: (PENDING PHARMACY ID) (Dorzolamide Hcl/Pf [Dorzolamide 2% Eye Drop] 1 DROP) OU SCH (10:00)
[2019-10-17] MEDS: HYDROMORPHONE HCL INJ/PF 2 MG/ML AMPULE IV PRN (10:46)
[2019-10-17] MEDS ORDERED: FENTANYL 25 MCG/HR PATCH.TD72 TD SCH (16:00)
[2019-10-17] MEDS: DEXTROSE 5%-WATER 1000 ML 1,000 ML IV PRN (16:07)
[2019-10-17] MEDS: TRAZODONE HCL 50 MG TABLET PO SCH (21:28)
[2019-10-17] MEDS: ATORVASTATIN CALCIUM 40 MG TABLET PO SCH (21:29)
[2019-10-18] MEDS: DEXTROSE 5%-WATER 1000 ML 1,000 ML IV PRN ×3 (02:39→23:51)
--- NOTE | 2019-10-18 08:15 | PDOC CONSULTATION ---
Consultation Consult Date: 10/18/19 Provider Consulted: JAVIER STOCKTON JR History of Present Illness Admission Date/PCP: 10/16/19 14:15 SONYA SIMPSON History of Present Illness: PHILLY PIERRE is a 69 year old male who fell 2 days ago, landing on his right arm. He presented to the emergency department with a midshaft humerus fracture as well as a cough. In the ER, he was found to have pneumonia as well. He was admitted for treatment of his pneumonia as well as fracture care. He has difficulty ambulating at baseline and requires a walker, and the upper extremity fracture is further detriment to safe ambulation. He denies fever or chills, denies syncopal episode prior to fall. Pain in the right arm is 7/10, aching, worse with motion, improved with pain medication. Past Medical History Cardiac Medical History: Reports: Hyperlipidema Denies: Coronary Artery Disease, Myocardial Infarction, Hypertension Pulmonary Medical History: Reports: Asthma Denies: Bronchitis, Chronic Obstructive Pulmonary Disease (COPD), Pneumonia Neurological Medical History: Denies: Seizures Endocrine Medical History: Reports: Diabetes Mellitus Type 2 GI Medical History: Reports: Gastroesophageal Reflux Disease Musculoskeltal Medical History: Denies: Arthritis Psychiatric Medical History: Denies: Depression Hematology: Reports: Anemia Past Surgical History Past Surgical History: Reports: Gastric Bypass Surgery, Orthopedic Surgery - Left Knee Sx x 4 Social History Lives with: Spouse/Significant other Smoking Status: Former Smoker Electronic Cigarette use?: No Number of Years Smokin Last Time Smoked: 1983 Frequency of Alcohol Use: None Hx Recreational Drug Use: No Drugs: None Hx Prescription Drug Abuse: No - Advance Directive Resuscitation Status: Do Not Resuscitate Family History Family History: Reviewed & Not Pertinent Parental Family History Reviewed: No Children Family History Reviewed: NA Sibling(s) Family History Reviewed.: NA Medication/Allergy Home Medications: Aspirin [[place] Aspirin] 81 mg PO DAILY 10/29/13 Latanoprost [Xalatan 0.005% Oph Soln 2.5 ml] 1 drop OP QHS 10/29/13 Budesonide/Formoterol Fumarate [Symbicort 160-4.5 Mcg Inhaler] 2 puff IH BID 07/09/18 Ergocalciferol (Vitamin D2) [Vitamin D2] 50,000 unit PO MO 10/31/18 Gabapentin 600 mg PO TID 07/09/18 Ascorbic Acid [Vitamin C 500 mg Tablet] 500 mg PO Q12 10/16/19 Atorvastatin Calcium [Lipitor 40 mg Tablet] 40 mg PO QHS 10/16/19 Atorvastatin Calcium [Lipitor 40 mg Tablet] 40 mg PO QHS 10/16/19 Cyanocobalamin (Vitamin B-12) [Vitamin B-12] 1,000 mcg PO DAILY 10/16/19 Dorzolamide HCl/Pf [Dorzolamide 2% Eye Drop] 1 drop OU TID 10/16/19 Duloxetine HCl [Cymbalta 30 mg Capsule.dr] 30 mg PO BID 10/16/19 Fentanyl [Duragesic 25 Mcg/Hr Transdermal Patch] 1 each TD Q3D 10/16/19 Fluticasone Propionate [Flonase Nasal [place] 50 Mcg/[place] 16 gm] 2 sprays NASL Q12HP PRN 10/16/19 Levetiracetam [Keppra 500 mg Tablet] 500 mg PO Q12 10/16/19 Magnesium Oxide [Mag-Ox 400 mg Tablet] 400 mg PO Q12 10/16/19 Metformin HCl [Metformin HCl ER] 500 mg PO BID 10/16/19 Multivit-Min/FA/Lycopen/Lutein [Men 50 Plus Multivitamin Tab] 1 each PO DAILY 10/16/19 Nystatin [Mycostatin Topical Powder 15 gm] 1 applic TP BID 10/16/19 Omeprazole 40 mg PO DAILY 10/16/19 Rivastigmine [Exelon 4.6 Mg/24 Hr Transdermal Patch] 1 each TD DAILY 10/16/19 Tamsulosin HCl [Flomax 0.4 mg Cap.sr] 0.4 mg PO DAILY 10/16/19 Trazodone HCl [Desyrel 50 mg Tablet] 75 mg PO DAILY 10/16/19 Vit C/E/Zn/Coppr/Lutein/Zeaxan [Preservision Areds 2 Softgel] 1 each PO DAILY 10/16/19 Zinc Sulfate [Zinc-220] 220 mg PO QAM 10/16/19 Allergies/Adverse Reactions: codeine [Codeine] Allergy (Unknown, Verified 07/28/18 11:11) zolpidem [From Ambien] Allergy (Verified 07/28/18 11:11) Review of Systems Review of Systems: Constitutional: ABSENT: anorexia, chills, night sweats Cardiovascular: ABSENT: chest pain Respiratory: ABSENT: dyspnea, PRESENT: Cough Gastrointestinal: ABSENT: vomiting Genitourinary: ABSENT: dysuria Integumentary: ABSENT: rash Neurological: ABSENT: confusion, memory loss, numbness Psychiatric: ABSENT: hallucinations Hematologic/Lymphatic: ABSENT: easy bleeding Musculoskeletal: Right upper extremity pain and swelling Physical Exam Vital Signs: Temp Pulse Resp BP Pulse Ox 97.8 F 93 16 128/71 H 95 10/17/19 23:55 10/18/19 02:00 10/17/19 23:55 10/17/19 23:55 10/17/19 23:55 Intake & Output 10/16/19 10/17/19 10/18/19 06:59 06:59 06:59 Intake Total 450 2460 Output Total 1035 Balance -585 2460 Weight 82.4 kg Physical Exam: General appearance: PRESENT: no acute distress, cooperative, well-nourished Head exam: PRESENT: atraumatic, normocephalic Eye exam: PRESENT: EOMI Ear exam: PRESENT: normal external ear exam Mouth exam: PRESENT: neck supple Neck exam: ABSENT: tracheal deviation Respiratory exam: PRESENT: symmetrical, unlabored. ABSENT: accessory muscle use, wheezes Pulses: PRESENT: normal radial pulses, normal dorsalis pedis pulse Vascular exam: PRESENT: normal capillary refill GI/Abdominal exam: ABSENT: distended, firm Neurological exam: PRESENT: alert, awake, oriented to person, oriented to place, oriented to time Psychiatric exam: PRESENT: appropriate affect. ABSENT: agitated Focused psych exam: ABSENT: catatonic Skin exam: PRESENT: intact. ABSENT: dry All as above aside from that noted in the HPI and the following: Musculoskeletal: - Right upper extremity: Pain to palpation mid-humerus, well positioned in sling Full sensation intact proximally and distally Motor function intact to AIN, PIN, Ulnar, Median nn Pulses 2+ Moderate swelling, compartments soft, skin intact Results Laboratory Results: 10/17/19 05:03 10/17/19 05:03 Impressions: Chest X-Ray 10/16/19 10:44 IMPRESSION: Right lower lobe pneumonia with small parapneumonic effusion. Recommend follow-up to resolution. Forearm X-Ray 10/16/19 10:44 IMPRESSION: No definite acute bony abnormality of the right forearm. Decreased mineralization with degenerative changes about the elbow and wrist. Humerus X-Ray 10/16/19 10:44 IMPRESSION: Decreased mineralization with transversely oriented fracture about the midshaft right humerus. 1 shaft width lateral displacement of the distal fracture fragment. Assessment & Plan - Diagnosis (1) Right humeral fracture Is this a current diagnosis for this admission?: Yes Plan: patient should maintain his sling. Nonweightbearing right upper extremity. I will communicate with orthotics today in order to get the patient a [place] brace. Pain control per medicine Continue ROM of wrist and fingers PT/OT to assist with ADL training, evaluate for disposition Follow up in the office with myself or Dr. Woods within 2 weeks of discharge
[2019-10-18] MEDS: INSULIN LISPRO 100 UNIT/ML 3 ML VIAL SUBCUT SCH ×4 (09:13→21:58)
[2019-10-18] MEDS: DOCUSATE SODIUM 100 MG CAPSULE PO SCH (09:31)
[2019-10-18] MEDS: TAMSULOSIN HCL 0.4 MG CAP.SR.24H PO SCH (09:31)
[2019-10-18] MEDS: GABAPENTIN 300 MG CAPSULE PO SCH ×3 (09:31→17:36)
[2019-10-18] MEDS: CEFTRIAXONE 1 GM/D5W RTU 1 GM/50 ML RTUPB IV SCH ×2 (09:31→21:27)
[2019-10-18] MEDS: DULOXETINE HCL 30 MG CAPSULE.DR PO SCH ×2 (09:31→17:36)
[2019-10-18] MEDS: LEVETIRACETAM 500 MG TABLET PO SCH ×2 (09:31→21:28)
[2019-10-18] MEDS: METFORMIN HCL 500 MG TABLET PO SCH ×2 (09:31→17:36)
[2019-10-18] MEDS: FAMOTIDINE 20 MG TABLET PO SCH ×2 (09:31→21:28)
[2019-10-18] MEDS: RIVASTIGMINE 4.6 MG/24 HR PATCH.TD24 TD SCH (09:31)
[2019-10-18] MEDS: ASPIRIN 81 MG TABLET, CHEWABLE PO SCH (09:31)
[2019-10-18] MEDS: FLUTICASONE/VILANTEROL 200-25 MCG/DOSE IH SCH (09:31)
[2019-10-18] MEDS: ENOXAPARIN SODIUM INJ 40 MG/0.4 ML DISP.SYRIN SUBCUT SCH (09:32)
[2019-10-18] MEDS: NYSTATIN TOPICAL POWDER 15 GM TP SCH ×2 (09:32→17:21)
--- NOTE | 2019-10-18 10:33 | PDOC PROGRESS REPORT ---
Subjective Progress Note for:: 10/17/19 Reason For Visit: HUMERUS SHAFT FRACTURE VIRAL UPPER RESPIRATORY 10/17/2019 As above plus pneumonia plus dementia Physical Exam Vital Signs: Temp Pulse Resp BP Pulse Ox 97.8 F 91 16 144/78 H 95 10/17/19 23:55 10/18/19 08:43 10/18/19 08:43 10/18/19 08:43 10/18/19 08:43 Intake & Output 10/17/19 10/18/19 10/19/19 06:59 06:59 06:59 Intake Total 450 2580 Output Total 1035 Balance -585 2580 Weight 82.4 kg 82.3 kg General appearance: PRESENT: mild distress, other - Complaining of arm pain Respiratory exam: PRESENT: decreased breath sounds Cardiovascular exam: PRESENT: RRR. ABSENT: diastolic murmur, rubs, systolic murmur Extremities exam: PRESENT: other - Right upper extremity in sling Neurological exam: PRESENT: alert, other - Confused as to place time problem Psychiatric exam: PRESENT: unusual affect - Due to dementia, Parkinson's Results Laboratory Results: 10/17/19 05:03 10/17/19 05:03 Impressions: Chest X-Ray 10/16/19 10:44 IMPRESSION: Right lower lobe pneumonia with small parapneumonic effusion. Recommend follow-up to resolution. Forearm X-Ray 10/16/19 10:44 IMPRESSION: No definite acute bony abnormality of the right forearm. Decreased mineralization with degenerative changes about the elbow and wrist. Humerus X-Ray 10/16/19 10:44 IMPRESSION: Decreased mineralization with transversely oriented fracture about the midshaft right humerus. 1 shaft width lateral displacement of the distal fracture fragment. Assessment and Plan - Diagnosis (1) Right humeral fracture Is this a current diagnosis for this admission?: Yes (2) Dementia Is this a current diagnosis for this admission?: Yes (3) Pneumonia Is this a current diagnosis for this admission?: Yes (4) Diabetes Is this a current diagnosis for this admission?: Yes - Plan Summary Summary: Patient will be admitted for broad-spectrum IV antibiotics. No leukocytosis. Chest x-ray is being repeated with 2 views Orthopedics will consult concerning humerus fracture 10/17/2019 Will have orthopedics see the patient on Saturday Adjust pain medication Continue IV antibiotics as well as home meds - Time Time Spent with patient: 15-24 minutes
--- NOTE | 2019-10-18 10:41 | PDOC PROGRESS REPORT ---
Subjective Progress Note for:: 10/18/19 Reason For Visit: HUMERUS SHAFT FRACTURE VIRAL UPPER RESPIRATORY 10/18/2019 Admission for acute fracture of the right humerus, probable pneumonia, chronic dementia Physical Exam Vital Signs: Temp Pulse Resp BP Pulse Ox 97.8 F 91 16 144/78 H 95 10/17/19 23:55 10/18/19 08:43 10/18/19 08:43 10/18/19 08:43 10/18/19 08:43 Intake & Output 10/17/19 10/18/19 10/19/19 06:59 06:59 06:59 Intake Total 450 2580 Output Total 1035 Balance -585 2580 Weight 82.4 kg 82.3 kg General appearance: PRESENT: no acute distress Respiratory exam: PRESENT: decreased breath sounds Cardiovascular exam: PRESENT: RRR. ABSENT: diastolic murmur, rubs, systolic murmur Neurological exam: PRESENT: alert, other - Patient thinks he is in his home and that his is in the next room but he does know that he is in [facility] Psychiatric exam: PRESENT: unusual affect Results Laboratory Results: 10/17/19 05:03 10/17/19 05:03 Impressions: Chest X-Ray 10/16/19 10:44 IMPRESSION: Right lower lobe pneumonia with small parapneumonic effusion. Recommend follow-up to resolution. Forearm X-Ray 10/16/19 10:44 IMPRESSION: No definite acute bony abnormality of the right forearm. Decreased mineralization with degenerative changes about the elbow and wrist. Humerus X-Ray 10/16/19 10:44 IMPRESSION: Decreased mineralization with transversely oriented fracture about the midshaft right humerus. 1 shaft width lateral displacement of the distal fracture fragment. Assessment and Plan - Diagnosis (1) Right humeral fracture Is this a current diagnosis for this admission?: Yes (2) Dementia Is this a current diagnosis for this admission?: Yes (3) Pneumonia Is this a current diagnosis for this admission?: Yes (4) Diabetes Is this a current diagnosis for this admission?: Yes - Plan Summary Summary: Patient will be admitted for broad-spectrum IV antibiotics. No leukocytosis. Chest x-ray is being repeated with 2 views Orthopedics will consult concerning humerus fracture 10/17/2019 Will have orthopedics see the patient on Saturday Adjust pain medication Continue IV antibiotics as well as home meds 10/18/2019 Temperature 97.8 pulse between 80 and 90, blood pressure 140/68 O2 sat 95% on room air Patient has significant dementia and I get the impression he was marginal before he came into the hospital as far as his care CBC is normal Chemistry looks normal blood sugars running in around 100 to 120 Blood culture showed no growth in 24 hours Will repeat 2 view chest x-ray tomorrow morning Will DC Dilaudid price changer to Percocet Check Keppra level Continue IV Rocephin - Time Time Spent with patient: 25-34 minutes
[2019-10-18] MEDS: TRAZODONE HCL 50 MG TABLET PO SCH (21:28)
[2019-10-18] MEDS: ATORVASTATIN CALCIUM 40 MG TABLET PO SCH (21:28)
[2019-10-19] MEDS: OXYCODONE-ACETAMINOPHEN 5-325 MG TABLET PO PRN ×2 (07:37→15:35)
--- NOTE | 2019-10-19 07:40 | PDOC PROGRESS REPORT ---
Subjective Progress Note for:: 10/19/19 Subjective:: Patient doing well this morning. Reports some pain however currently appropriately controlled on pain medications. No new signs or symptoms, no new complaints Reason For Visit: HUMERUS SHAFT FRACTURE VIRAL UPPER RESPIRATORY Physical Exam Vital Signs: Temp Pulse Resp BP Pulse Ox 97.4 F 79 18 121/69 94 10/19/19 04:33 10/19/19 07:00 10/19/19 04:33 10/19/19 04:33 10/19/19 04:33 Intake & Output 10/18/19 10/19/19 10/20/19 06:59 06:59 06:59 Intake Total 2580 2400 Output Total 950 Balance 2580 1450 Weight 82.3 kg 82.3 kg Physical Exam: Alert and oriented x3, no acute distress All as above aside from that noted in the HPI and the following: Musculoskeletal: - Right upper extremity: Pain to palpation mid-humerus, improved position in bed this morning over yesterday, and improved comfort Full sensation intact proximally and distally Motor function intact to AIN, PIN, Ulnar, Median nn Pulses 2+ Moderate swelling, compartments soft, skin intact Tenderness to palpation at the wrist, however no swelling crepitance or deformity noted. Range of motion appropriate. Results Laboratory Results: 10/17/19 05:03 10/17/19 05:03 Impressions: Chest X-Ray 10/16/19 10:44 IMPRESSION: Right lower lobe pneumonia with small parapneumonic effusion. Recommend follow-up to resolution. Forearm X-Ray 10/16/19 10:44 IMPRESSION: No definite acute bony abnormality of the right forearm. Decreased mineralization with degenerative changes about the elbow and wrist. Humerus X-Ray 10/16/19 10:44 IMPRESSION: Decreased mineralization with transversely oriented fracture about the midshaft right humerus. 1 shaft width lateral displacement of the distal fracture fragment. Assessment & Plan - Diagnosis (1) Right humeral fracture Is this a current diagnosis for this admission?: Yes Plan: Patient may get Soto brace from [employer], will contact today to see if they can fit in the hospital, otherwise potentially as an outpatient after seen in the office. Until that time he is to continue his sling Pain control per medical team Follow-up in the office in 1 to 2 weeks We will get focused x-rays of the right wrist due to wrist pain. - Time Time Spent with patient: Less than 15 minutes
[2019-10-19] MEDS: INSULIN LISPRO 100 UNIT/ML 3 ML VIAL SUBCUT SCH ×4 (09:35→21:23)
[2019-10-19] MEDS: NYSTATIN TOPICAL POWDER 15 GM TP SCH ×2 (09:35→17:30)
[2019-10-19] MEDS: ENOXAPARIN SODIUM INJ 40 MG/0.4 ML DISP.SYRIN SUBCUT SCH (09:35)
[2019-10-19] MEDS: DULOXETINE HCL 30 MG CAPSULE.DR PO SCH ×2 (10:10→17:52)
[2019-10-19] MEDS: METFORMIN HCL 500 MG TABLET PO SCH ×2 (10:10→17:52)
[2019-10-19] MEDS: FLUTICASONE/VILANTEROL 200-25 MCG/DOSE IH SCH (10:10)
[2019-10-19] MEDS: ASPIRIN 81 MG TABLET, CHEWABLE PO SCH (10:10)
[2019-10-19] MEDS: DOCUSATE SODIUM 100 MG CAPSULE PO SCH (10:10)
[2019-10-19] MEDS: TAMSULOSIN HCL 0.4 MG CAP.SR.24H PO SCH (10:11)
[2019-10-19] MEDS: RIVASTIGMINE 4.6 MG/24 HR PATCH.TD24 TD SCH (10:11)
[2019-10-19] MEDS: CEFTRIAXONE 1 GM/D5W RTU 1 GM/50 ML RTUPB IV SCH ×2 (10:11→21:29)
[2019-10-19] MEDS: LEVETIRACETAM 500 MG TABLET PO SCH ×2 (10:11→21:29)
[2019-10-19] MEDS: GABAPENTIN 300 MG CAPSULE PO SCH ×3 (10:11→17:52)
[2019-10-19] MEDS: FAMOTIDINE 20 MG TABLET PO SCH ×2 (10:11→21:29)
[2019-10-19] MEDS: DEXTROSE 5%-WATER 1000 ML 1,000 ML IV PRN ×2 (10:17→21:32)
--- NOTE | 2019-10-19 10:21 | RADIOLOGY REPORT (SQ) ---
EXAM DESCRIPTION: WRIST RIGHT 3 VIEWS COMPLETED DATE/TIME: 10/19/2019 10:05 am REASON FOR STUDY: pain COMPARISON: None. NUMBER OF VIEWS: Three views. TECHNIQUE: AP, lateral, and oblique radiographic images acquired of the right wrist. LIMITATIONS: None. FINDINGS: MINERALIZATION: Osteopenia. BONES: No acute fracture or dislocation. There is osteoarthrosis of the distal radioulnar, radiocarp al, triscaphe, 1st CMC, and 1st CMC joints. SOFT TISSUES: No soft tissue swelling or radiopaque foreign body. OTHER: No other finding. IMPRESSION: No acute osseous abnormality of the right wrist. TECHNICAL DOCUMENTATION: JOB ID: [id number] 2010 [employer]- All Rights Reserved Reading location - IP/workstation name: [email or web address]
--- NOTE | 2019-10-19 10:25 | RADIOLOGY REPORT (SQ) ---
EXAM DESCRIPTION: CHEST 2 VIEWS COMPLETED DATE/TIME: 10/19/2019 10:05 am REASON FOR STUDY: Fractured humerus/PNEUMONIA COMPARISON: AP and lateral views of the chest from 10/16/2019 EXAM PARAMETERS: NUMBER OF VIEWS: Two views. TECHNIQUE: PA and lateral views of the chest were obtained.. RADIATION DOSE: NA LIMITATIONS: none FINDINGS: LUNGS AND PLEURA: Unchanged volume loss on the right and pleural and parenchymal opacities in the inferior right hemithorax. There is no pneumothorax. MEDIASTINUM AND HILAR STRUCTURES: No mediastinal or hilar contour abnormality. HEART AND VASCULAR STRUCTURES: The cardiac silhouette is within normal limits. BONES: No acute findings. HARDWARE: Spinal stimulator. OTHER: No other finding. IMPRESSION: Unchanged radiographic appearance of the chest. TECHNICAL DOCUMENTATION: JOB ID: [id number] 2010 [employer]- All Rights Reserved Reading location - IP/workstation name: [email or web address]
--- NOTE | 2019-10-19 10:34 | PDOC PROGRESS REPORT ---
Subjective Progress Note for:: 10/19/19 Reason For Visit: HUMERUS SHAFT FRACTURE VIRAL UPPER RESPIRATORY 10/19/2019 Admitted to the hospital secondary to a fall due to weakness. Patient evidently had an underlying pneumonia for the last several days prior to admission. Fall resulted in a fracture of the right midshaft humerus. Patient admitted for pain control and treatment for pneumonia. Patient has underlying significant diagnosis of dementia Physical Exam Vital Signs: Temp Pulse Resp BP Pulse Ox 97.4 F 77 16 117/68 93 10/19/19 07:35 10/19/19 07:35 10/19/19 07:35 10/19/19 07:35 10/19/19 07:35 Intake & Output 10/18/19 10/19/19 10/20/19 06:59 06:59 06:59 Intake Total 2580 2400 1000 Output Total 950 Balance 2580 1450 1000 Weight 82.3 kg 82.3 kg General appearance: PRESENT: no acute distress Respiratory exam: PRESENT: decreased breath sounds Cardiovascular exam: PRESENT: RRR. ABSENT: diastolic murmur, rubs, systolic m urmur Neurological exam: PRESENT: alert Psychiatric exam: PRESENT: appropriate affect, normal mood, other - Patient's psychological expression appears normal superficially or on the surface, the patient is clearly demented and does not remember events from earlier in the day or from yesterday.. ABSENT: homicidal ideation, suicidal ideation Results Laboratory Results: 10/17/19 05:03 10/17/19 05:03 Impressions: Forearm X-Ray 10/16/19 10:44 IMPRESSION: No definite acute bony abnormality of the right forearm. Decreased mineralization with degenerative changes about the elbow and wrist. Humerus X-Ray 10/16/19 10:44 IMPRESSION: Decreased mineralization with transversely oriented fracture about the midshaft right humerus. 1 shaft width lateral displacement of the distal fracture fragment. Wrist X-Ray 10/19/19 00:00 IMPRESSION: No acute osseous abnormality of the right wrist. Assessment and Plan - Diagnosis (1) Right humeral fracture Is this a current diagnosis for this admission?: Yes (2) Dementia Is this a current diagnosis for this admission?: Yes (3) Pneumonia Is this a current diagnosis for this admission?: Yes (4) Diabetes Is this a current diagnosis for this admission?: Yes - Plan Summary Summary: Patient will be admitted for broad-spectrum IV antibiotics. No leukocytosis. Chest x-ray is being repeated with 2 views Orthopedics will consult concerning humerus fracture 10/17/2019 Will have orthopedics see the patient on Saturday Adjust pain medication Continue IV antibiotics as well as home meds 10/18/2019 Temperature 97.8 pulse between 80 and 90, blood pressure 140/68 O2 sat 95% on room air Patient has significant dementia and I get the impression he was marginal before he came into the hospital as far as his care CBC is normal Chemistry looks normal blood sugars running in around 100 to 120 Blood culture showed no growth in 24 hours Will repeat 2 view chest x-ray tomorrow morning Will DC Dilaudid exchange underwriting consultant to Percocet Check Keppra level Continue IV Rocephin Appreciate orthopedics consult. We will follow their recommendations 10/19/2019 Evidently earlier this morning patient refused to go down with a transporter for his chest x-ray. Patient does not remember doing so. When I saw the patient in the room he was agreeable to going downstairs for his x-rays Since vital signs remained stable his saturation of oxygen is 93% on room air his pulse blood pressure and temperature are all normal Patient's fingerstick blood sugars are anywhere from 76-150. Patient currently is being covered with a sliding scale. I will resume his metformin today. She is currently on Rocephin for his pneumonia Patient's pain is being controlled with 1 Percocet, and continuing his Duragesic patch which he was on prior to admission 25 mcq Recent wrist x-ray from today shows no acute fracture. Keppra level is pending Primary diagnosis is #1 fracture of the midshaft right humerus 2 new onset pneumonia 3 chronic dementia 4 chronic pain Patient was living at home prior to admission and should be able to return home - Time Time Spent with patient: 25-34 minutes
--- NOTE | 2019-10-19 11:15 | CDI QUERY ---
CDI Query CDI Review: Dear Provider: To better reflect your patients severity of illness, morbidity, and resource utilization Please specify and document in the Progress Notes and Discharge Summary if you are monitoring / treating / evaluating any of the following conditions: Query Clinical indicators Senile dementia with or without behavioral disturbance Alzheimers dementia with or without behavioral disturbance Lewy Body dementia with or without behavioral disturbance Vascular dementia Unable to determine with or without behavioral disturbance Other Per Progress Notes: Patient has significant dementia and I get the impression he was marginal before he came into the hospital The terms probable, suspected, likely, possible or still to be ruled out may be used if you are unable to determine the exact nature of a condition. Thank you, Clinical Documentation Physician Advisors CHERISE Troncoso RN, BSN RN [email or web address] Office [phone] Office [phone]
--- NOTE | 2019-10-19 15:53 | RADIOLOGY REPORT (SQ) ---
EXAM DESCRIPTION: HUMERUS RIGHT COMPLETED DATE/TIME: 10/19/2019 3:33 pm REASON FOR STUDY: patient fall/reassess. COMPARISON: Radiograph from 10/16/2019. NUMBER OF VIEWS: Two views. TECHNIQUE: Two radiographic images were acquired of the right humerus to include elbow and shoulder in at least one projection. LIMITATIONS: None. FINDINGS: MINERALIZATION: Osteopenia. BONES: Acute transverse displaced fracture of the humeral diaphysis ; the alignment of the fracture i s unchanged from the 10/16/2019 radiograph. There is superior subluxation of the humeral head relative to the glenoid. SOFT TISSUES: Soft tissue swelling centered around the fracture. OTHER: No other finding. IMPRESSION: Unchanged alignment of the transverse displaced fracture through the humeral diaphysis. TECHNICAL DOCUMENTATION: JOB ID: [id number] 2010 [employer]- All Rights Reserved Reading location - IP/workstation name: [email or web address]
--- NOTE | 2019-10-19 16:45 | Progress Note ---
Provider Note Provider Note: Patient fell today getting out of bed. Evidently physical therapy did not put the bed alarm on with a left and he being demented got up and fell landing on his right side. Rays of his previous right humerus fracture shows no change in the alignment.
[2019-10-19] MEDS: ERGOCALCIFEROL (VITAMIN D2) 50000 UNIT (1.25 MG) CAPSULE PO SCH (17:52)
[2019-10-19] MEDS: ATORVASTATIN CALCIUM 40 MG TABLET PO SCH (21:29)
[2019-10-19] MEDS: TRAZODONE HCL 50 MG TABLET PO SCH (21:29)
[2019-10-20] MEDS: OXYCODONE-ACETAMINOPHEN 5-325 MG TABLET PO PRN ×3 (06:00→22:11)
--- NOTE | 2019-10-20 07:19 | PDOC PROGRESS REPORT ---
Subjective Progress Note for:: 10/20/19 Subjective:: Patient is doing well this AM. No new complaints. Still has pain in right arm, unchanged, well controlled on current medications. Reason For Visit: HUMERUS SHAFT FRACTURE VIRAL UPPER RESPIRATORY Physical Exam Vital Signs: Temp Pulse Resp BP Pulse Ox 98.0 F 87 16 137/79 H 95 10/20/19 03:45 10/20/19 03:45 10/20/19 03:45 10/20/19 03:45 10/20/19 03:45 Intake & Output 10/19/19 10/20/19 10/21/19 06:59 06:59 06:59 Intake Total 2400 2400 Output Total 950 800 Balance 1450 1600 Weight 82.3 kg Physical Exam: No acute distress All as above aside from that noted in the HPI and the following: Musculoskeletal: - Right upper extremity: Pain to palpation mid-humerus, improved position in bed this morning over yesterday, and improved comfort Full sensation intact proximally and distally Motor function intact to AIN, PIN, Ulnar, Median nn Pulses 2+ Moderate swelling, compartments soft, skin intact Tenderness to palpation at the wrist, however no swelling crepitance or deformity noted. Range of motion appropriate. Results Laboratory Results: 10/17/19 05:03 10/17/19 05:03 Impressions: Forearm X-Ray 10/16/19 10:44 IMPRESSION: No definite acute bony abnormality of the right forearm. Decreased mineralization with degenerative changes about the elbow and wrist. Humerus X-Ray 10/19/19 00:00 IMPRESSION: Unchanged alignment of the transverse displaced fracture through the humeral diaphysis. Wrist X-Ray 10/19/19 00:00 IMPRESSION: No acute osseous abnormality of the right wrist. Chest X-Ray 10/19/19 07:00 IMPRESSION: Unchanged radiographic appearance of the chest. Assessment & Plan - Diagnosis (1) Right humeral fracture Is this a current diagnosis for this admission?: Yes Plan: Patient may get Griffith brace from [employer], will contact today to see if they can fit in the hospital, otherwise potentially as an outpatient after seen in the office. Until that time he is to continue his sling Pain control per medical team Follow-up in the office in 1 to 2 weeks Right griffith ordered, but if not placed while in house, can be sent out with a prescription to have done electively outside the hospital at [facility], or have ordered from my office as an outpatient. Does not need prior to discharge. If not obtained, keep in sling through follow up. Right wrist XR shows no acute injury, mild to moderate osteoarthritis. - Time Time Spent with patient: Less than 15 minutes
[2019-10-20] MEDS: INSULIN LISPRO 100 UNIT/ML 3 ML VIAL SUBCUT SCH ×4 (08:09→22:05)
[2019-10-20] MEDS: METFORMIN HCL 500 MG TABLET PO SCH ×2 (08:20→17:31)
[2019-10-20 09:11] LABS: ABSOLUTE BASOPHILS # (AUTO) 0.1 10^3/uL (0.0-0.2); ABSOLUTE EOSINOPHILS # (AUTO) 0.1 10^3/uL (0.0-0.6); ABSOLUTE LYMPHOCYTES (AUTO) 1.9 10^3/uL (0.5-4.7); ABSOLUTE MONOCYTES (AUTO) 0.7 10^3/uL (0.1-1.4); ABSOLUTE NEUT (AUTO) 6.4 10^3/uL (1.7-8.2); BASOPHILS % (AUTO) 0.9 % (0-2); HEMATOCRIT 35.6 % (37.9-51.0); HEMOGLOBIN 11.7 g/dL (13.5-17.0); LYMPHOCYTES % (AUTO) 20.9 % (13-45); MEAN CORPUSCULAR HEMOGLOBIN 24.6 pg (27.0-33.4); MEAN CORPUSCULAR HGB CONC 32.8 g/dL (32.0-36.0); MEAN CORPUSCULAR VOLUME 75 fl (80-97); MONOCYTES % (AUTO) 8.1 % (3-13); PLATELET COUNT 303 10^3/uL (150-450); RED BLOOD COUNT 4.74 10^6/uL (4.35-5.55); SEGMENTED NEUTROPHILS % (AUTO) 69.1 % (42-78); TOTAL CELLS COUNTED % (AUTO) 100 %; WHITE BLOOD COUNT 9.2 10^3/uL (4.0-10.5)
[2019-10-20 09:29] LABS: ANION GAP 12 (5-19); BLOOD UREA NITROGEN 9 mg/dL (7-20); CALCIUM 8.6 mg/dL (8.4-10.2); CARBON DIOXIDE 25 mmol/L (22-30); CHLORIDE 96 mmol/L (98-107); GLUCOSE 182 mg/dL (75-110); POTASSIUM 3.9 mmol/L (3.6-5.0)
[2019-10-20] MEDS: CEFTRIAXONE 1 GM/D5W RTU 1 GM/50 ML RTUPB IV SCH ×2 (09:57→22:12)
[2019-10-20] MEDS: FENTANYL 25 MCG/HR PATCH.TD72 TD SCH (09:58)
[2019-10-20] MEDS: ENOXAPARIN SODIUM INJ 40 MG/0.4 ML DISP.SYRIN SUBCUT SCH (10:00)
[2019-10-20] MEDS: NYSTATIN TOPICAL POWDER 15 GM TP SCH ×2 (10:00→17:39)
[2019-10-20] MEDS: DULOXETINE HCL 30 MG CAPSULE.DR PO SCH ×2 (10:01→17:31)
[2019-10-20] MEDS: TAMSULOSIN HCL 0.4 MG CAP.SR.24H PO SCH (10:01)
[2019-10-20] MEDS: FAMOTIDINE 20 MG TABLET PO SCH ×2 (10:01→22:11)
[2019-10-20] MEDS: FLUTICASONE/VILANTEROL 200-25 MCG/DOSE IH SCH (10:01)
[2019-10-20] MEDS: ASPIRIN 81 MG TABLET, CHEWABLE PO SCH (10:01)
[2019-10-20] MEDS: LEVETIRACETAM 500 MG TABLET PO SCH ×2 (10:01→22:11)
[2019-10-20] MEDS: DOCUSATE SODIUM 100 MG CAPSULE PO SCH (10:01)
[2019-10-20] MEDS: GABAPENTIN 300 MG CAPSULE PO SCH ×3 (10:01→17:31)
[2019-10-20] MEDS: RIVASTIGMINE 4.6 MG/24 HR PATCH.TD24 TD SCH (10:02)
--- NOTE | 2019-10-20 16:32 | PDOC PROGRESS REPORT ---
Subjective Progress Note for:: 10/20/19 Subjective:: PHILLY PIERRE is a 69 year old male who presented with fall and coughing. Patient was found to have a right humeral fracture and pneumonia. He was seen by orthopedics and is being managed with nonsurgical treatment. Patient was also started on IV antibiotics. No acute event overnight. Clinically this morning, he appears comfortable. Denies chest pain or shortness of breath. He says his arm pain is well controlled with current regimen. Discussed during CAPP rounds, physical therapy recommends SNF placement. Reason For Visit: HUMERUS SHAFT FRACTURE VIRAL UPPER RESPIRATORY Physical Exam Vital Signs: Temp Pulse Resp BP Pulse Ox 98.1 F 97 18 113/72 90 L 10/20/19 12:00 10/20/19 14:00 10/20/19 12:00 10/20/19 12:00 10/20/19 12:00 Intake & Output 10/19/19 10/20/19 10/21/19 06:59 06:59 06:59 Intake Total 2400 2400 50 Output Total 950 800 Balance 1450 1600 50 Weight 181 lb 7.047 oz 186 lb 8.177 oz General appearance: PRESENT: no acute distress, well-developed, well-nourished Head exam: PRESENT: atraumatic, normocephalic Eye exam: PRESENT: conjunctiva pink, EOMI, PERRLA. ABSENT: scleral icterus Ear exam: PRESENT: normal external ear exam Mouth exam: PRESENT: moist, tongue midline Neck exam: ABSENT: carotid bruit, JVD, lymphadenopathy, thyromegaly Respiratory exam: PRESENT: clear to auscultation juma. ABSENT: rales, rhonchi, wheezes Cardiovascular exam: PRESENT: RRR. ABSENT: diastolic murmur, rubs, systolic murmur Pulses: PRESENT: normal dorsalis pedis pul GI/Abdominal exam: PRESENT: normal bowel sounds, soft. ABSENT: distended, guarding, mass, organolmegaly, rebound, tenderness Rectal exam: PRESENT: deferred Neurological exam: PRESENT: alert, awake, oriented to person, CN II-XII grossly intact. ABSENT: motor sensory deficit Results Laboratory Results: 10/20/19 08:58 10/20/19 08:58 10/20/19 10/20/19 08:58 08:58 WBC 9.2 RBC 4.74 Hgb 11.7 L Hct 35.6 L MCV 75 L MCH 24.6 L MCHC 32.8 RDW 17.0 H Plt Count 303 Seg Neutrophils % 69.1 Sodium 132.6 L Potassium 3.9 Chloride 96 L Carbon Dioxide 25 Anion Gap 12 BUN 9 Creatinine 0.52 Est GFR ( Amer) > 60 Glucose 182 H Calcium 8.6 Impressions: Forearm X-Ray 10/16/19 10:44 IMPRESSION: No definite acute bony abnormality of the right forearm. Decreased mineralization with degenerative changes about the elbow and wrist. Humerus X-Ray 10/19/19 00:00 IMPRESSION: Unchanged alignment of the transverse displaced fracture through the humeral diaphysis. Wrist X-Ray 10/19/19 00:00 IMPRESSION: No acute osseous abnormality of the right wrist. Chest X-Ray 10/19/19 07:00 IMPRESSION: Unchanged radiographic appearance of the chest. Assessment and Plan - Diagnosis (1) Fracture of shaft of humerus Qualifiers: Encounter type: initial encounter Fracture type: closed Fracture morphology: transverse Fracture alignment: displaced Laterality: right Qualified Code(s): S42.321A - Displaced transverse fracture of shaft of humerus, right arm, initial encounter for closed fracture Is this a current diagnosis for this admission?: Yes Plan: Orthopedics following and is being managed with nonsurgical treatment. Patient will be getting a [employer] brace and hopefully will be delivered tomorrow. (2) Pneumonia Is this a current diagnosis for this admission?: Yes Plan: Continue antibiotics. (3) Dementia Is this a current diagnosis for this admission?: Yes - Plan Summary Summary: Patient will be admitted for broad-spectrum IV antibiotics. No leukocytosis. Chest x-ray is being repeated with 2 views Orthopedics will consult concerning humerus fracture 10/17/2019 Will have orthopedics see the patient on Saturday Adjust pain medication Continue IV antibiotics as well as home meds 10/18/2019 Temperature 97.8 pulse between 80 and 90, blood pressure 140/68 O2 sat 95% on room air Patient has significant dementia and I get the impression he was marginal before he came into the hospital as far as his care CBC is normal Chemistry looks normal blood sugars running in around 100 to 120 Blood culture showed no growth in 24 hours Will repeat 2 view chest x-ray tomorrow morning Will DC Dilaudid loom changeover operator to Percocet Check Keppra level Continue IV Rocephin Appreciate orthopedics consult. We will follow their recommendations 10/19/2019 Evidently earlier this morning patient refused to go down with a transporter for his chest x-ray. Patient does not remember doing so. When I saw the patient in the room he was agreeable to going downstairs for his x-rays Since vital signs remained stable his saturation of oxygen is 93% on room air his pulse blood pressure and temperature are all normal Patient's fingerstick blood sugars are anywhere from 76-150. Patient currently is being covered with a sliding scale. I will resume his metformin today. he is currently on Rocephin for his pneumonia. In reviewing patient's two-view chest x-ray today I am not impressed that this is a new finding. However I will continue the Rocephin and err on the conservative side. Patient's pain is being controlled with 1 Percocet, and continuing his Duragesic patch which he was on prior to admission 25 mcq Recent wrist x-ray from today shows no acute fracture. Keppra level is pending Primary diagnosis is #1 fracture of the midshaft right humerus 2 question new o nset pneumonia 3 chronic dementia 4 chronic pain Patient was living at home prior to admission and should be able to return home - Time Time Spent with patient: 25-34 minutes
[2019-10-20] MEDS: DEXTROSE 5%-WATER 1000 ML 1,000 ML IV PRN (20:04)
[2019-10-20] MEDS: TRAZODONE HCL 50 MG TABLET PO SCH (22:11)
[2019-10-20] MEDS: ATORVASTATIN CALCIUM 40 MG TABLET PO SCH (22:11)
[2019-10-21] MEDS: DEXTROSE 5%-WATER 1000 ML 1,000 ML IV PRN ×2 (06:43→17:46)
[2019-10-21] MEDS: INSULIN LISPRO 100 UNIT/ML 3 ML VIAL SUBCUT SCH ×4 (08:44→21:42)
[2019-10-21] MEDS: METFORMIN HCL 500 MG TABLET PO SCH ×2 (08:45→17:40)
[2019-10-21] MEDS: CEFTRIAXONE 1 GM/D5W RTU 1 GM/50 ML RTUPB IV SCH ×2 (11:26→22:15)
[2019-10-21] MEDS: RIVASTIGMINE 4.6 MG/24 HR PATCH.TD24 TD SCH (11:26)
[2019-10-21] MEDS: DOCUSATE SODIUM 100 MG CAPSULE PO SCH (11:27)
[2019-10-21] MEDS: GABAPENTIN 300 MG CAPSULE PO SCH ×3 (11:27→17:40)
[2019-10-21] MEDS: DULOXETINE HCL 30 MG CAPSULE.DR PO SCH ×2 (11:27→17:40)
[2019-10-21] MEDS: ASPIRIN 81 MG TABLET, CHEWABLE PO SCH (11:27)
[2019-10-21] MEDS: TAMSULOSIN HCL 0.4 MG CAP.SR.24H PO SCH (11:27)
[2019-10-21] MEDS: FAMOTIDINE 20 MG TABLET PO SCH ×2 (11:27→22:15)
[2019-10-21] MEDS: LEVETIRACETAM 500 MG TABLET PO SCH ×2 (11:27→22:14)
[2019-10-21] MEDS: NYSTATIN TOPICAL POWDER 15 GM TP SCH ×2 (11:28→17:40)
[2019-10-21] MEDS: FLUTICASONE/VILANTEROL 200-25 MCG/DOSE IH SCH (11:28)
[2019-10-21] MEDS: ENOXAPARIN SODIUM INJ 40 MG/0.4 ML DISP.SYRIN SUBCUT SCH (11:29)
--- NOTE | 2019-10-21 16:56 | PDOC PROGRESS REPORT ---
Subjective Progress Note for:: 10/21/19 Subjective:: PHILLY PIERRE is a 69 year old male who presented with fall and coughing. Patient was found to have a right humeral fracture and pneumonia. He was seen by orthopedics and is being managed with nonsurgical treatment. Patient was also started on IV antibiotics. 10/20: Upon encounter this morning, he appears comfortable. Denies chest pain or shortness of breath. He says his arm pain is well controlled with current regimen. Discussed during [facility] rounds, physical therapy recommends SNF placement. 10/21: No acute event overnight. Denies acute complaints. Pain is well controlled. Patient is now agreeable for SNF placement. Reason For Visit: HUMERUS SHAFT FRACTURE VIRAL UPPER RESPIRATORY Physical Exam Vital Signs: Temp Pulse Resp BP Pulse Ox 98.1 F 88 18 101/66 94 10/21/19 15:27 10/21/19 15:27 10/21/19 15:27 10/21/19 15:27 10/21/19 15:27 Intake & Output 10/20/19 10/21/19 10/22/19 06:59 06:59 06:59 Intake Total 2400 2100 500 Output Total 800 625 425 Balance 1600 1475 75 Weight 186 lb 8.177 oz 186 lb 11.704 oz General appearance: PRESENT: no acute distress, well-developed, well-nourished Head exam: PRESENT: atraumatic, normocephalic Eye exam: PRESENT: conjunctiva pink, EOMI, PERRLA. ABSENT: scleral icterus Ear exam: PRESENT: normal external ear exam Mouth exam: PRESENT: moist, tongue midline Neck exam: ABSENT: carotid bruit, JVD, lymphadenopathy, thyromegaly Respiratory exam: PRESENT: clear to auscultation juma. ABSENT: rales, rhonchi, wheezes Cardiovascular exam: PRESENT: RRR. ABSENT: diastolic murmur, rubs, systolic murmur Pulses: PRESENT: normal dorsalis pedis pul GI/Abdominal exam: PRESENT: normal bowel sounds, soft. ABSENT: distended, guard ing, mass, organolmegaly, rebound, tenderness Rectal exam: PRESENT: deferred Neurological exam: PRESENT: alert, awake, oriented to person, oriented to place, CN II-XII grossly intact. ABSENT: motor sensory deficit Results Laboratory Results: 10/20/19 08:58 10/20/19 08:58 10/16/19 15:28 Blood Blood Culture - Final NO GROWTH IN 5 DAYS 10/16/19 13:00 Blood Blood Culture - Final NO GROWTH IN 5 DAYS Impressions: Forearm X-Ray 10/16/19 10:44 IMPRESSION: No definite acute bony abnormality of the right forearm. Decreased mineralization with degenerative changes about the elbow and wrist. Humerus X-Ray 10/19/19 00:00 IMPRESSION: Unchanged alignment of the transverse displaced fracture through the humeral diaphysis. Wrist X-Ray 10/19/19 00:00 IMPRESSION: No acute osseous abnormality of the right wrist. Chest X-Ray 10/19/19 07:00 IMPRESSION: Unchanged radiographic appearance of the chest. Assessment and Plan - Diagnosis (1) Fracture of shaft of humerus Qualifiers: Encounter type: initial encounter Fracture type: closed Fracture morphology: transverse Fracture alignment: displaced Laterality: right Qualified Code(s): S42.321A - Displaced transverse fracture of shaft of humerus, right arm, initial encounter for closed fracture Is this a current diagnosis for this admission?: Yes Plan: Orthopedics following and is being managed with nonsurgical treatment. (2) Pneumonia Is this a current diagnosis for this admission?: Yes Plan: Continue antibiotics. (3) Dementia Is this a current diagnosis for this admission?: Yes - Plan Summary Summary: Patient will be admitted for broad-spectrum IV antibiotics. No leukocytosis. Chest x-ray is being repeated with 2 views Orthopedics will consult concerning humerus fracture 10/17/2019 Will have orthopedics see the patient on Saturday Adjust pain medication Continue IV antibiotics as well as home meds 10/18/2019 Temperature 97.8 pulse between 80 and 90, blood pressure 140/68 O2 sat 95% on room air Patient has significant dementia and I get the impression he was marginal before he came into the hospital as far as his care CBC is normal Chemistry looks normal blood sugars running in around 100 to 120 Blood culture showed no growth in 24 hours Will repeat 2 view chest x-ray tomorrow morning Will DC Dilaudid exchange mechanic to Percocet Check Keppra level Continue IV Rocephin Appreciate orthopedics consult. We will follow their recommendations 10/19/2019 Evidently earlier this morning patient refused to go down with a transporter for his chest x-ray. Patient does not remember doing so. When I saw the patient in the room he was agreeable to going downstairs for his x-rays Since vital signs remained stable his saturation of oxygen is 93% on room air his pulse blood pressure and temperature are all normal Patient's fingerstick blood sugars are anywhere from 76-150. Patient currently is being covered with a sliding scale. I will resume his metformin today. he is currently on Rocephin for his pneumonia. In reviewing patient's two-view chest x-ray today I am not impressed that this is a new finding. However I will continue the Rocephin and err on the conservative side. Patient's pain is being controlled with 1 Percocet, and continuing his Duragesic patch which he was on prior to admission 25 mcq Recent wrist x-ray from today shows no acute fracture. Keppra level is pending Primary diagnosis is #1 fracture of the midshaft right humerus 2 question new onset pneumonia 3 chronic dementia 4 chronic pain Patient was living at home prior to admission and should be able to return home - Time Time Spent with patient: 15-24 minutes
[2019-10-21] MEDS: OXYCODONE-ACETAMINOPHEN 5-325 MG TABLET PO PRN (20:35)
[2019-10-21] MEDS: TRAZODONE HCL 50 MG TABLET PO SCH (22:14)
[2019-10-21] MEDS: ATORVASTATIN CALCIUM 40 MG TABLET PO SCH (22:15)
[2019-10-22] MEDS: INSULIN LISPRO 100 UNIT/ML 3 ML VIAL SUBCUT SCH ×4 (09:22→21:46)
[2019-10-22] MEDS: TAMSULOSIN HCL 0.4 MG CAP.SR.24H PO SCH (09:26)
[2019-10-22] MEDS: DULOXETINE HCL 30 MG CAPSULE.DR PO SCH ×2 (09:26→17:31)
[2019-10-22] MEDS: ENOXAPARIN SODIUM INJ 40 MG/0.4 ML DISP.SYRIN SUBCUT SCH (09:26)
[2019-10-22] MEDS: FAMOTIDINE 20 MG TABLET PO SCH ×2 (09:26→21:47)
[2019-10-22] MEDS: NYSTATIN TOPICAL POWDER 15 GM TP SCH ×2 (09:26→17:31)
[2019-10-22] MEDS: METFORMIN HCL 500 MG TABLET PO SCH ×2 (09:26→17:31)
[2019-10-22] MEDS: CEFTRIAXONE 1 GM/D5W RTU 1 GM/50 ML RTUPB IV SCH ×2 (09:26→21:47)
[2019-10-22] MEDS: GABAPENTIN 300 MG CAPSULE PO SCH ×3 (09:26→17:31)
[2019-10-22] MEDS: RIVASTIGMINE 4.6 MG/24 HR PATCH.TD24 TD SCH (09:27)
[2019-10-22] MEDS: LEVETIRACETAM 500 MG TABLET PO SCH ×2 (09:27→21:50)
[2019-10-22] MEDS: DOCUSATE SODIUM 100 MG CAPSULE PO SCH (09:27)
[2019-10-22] MEDS: ASPIRIN 81 MG TABLET, CHEWABLE PO SCH (09:27)
[2019-10-22] MEDS: FLUTICASONE/VILANTEROL 200-25 MCG/DOSE IH SCH (09:27)
[2019-10-22] MEDS: OXYCODONE-ACETAMINOPHEN 5-325 MG TABLET PO PRN ×2 (10:11→21:47)
--- NOTE | 2019-10-22 14:57 | PDOC PROGRESS REPORT ---
Subjective Progress Note for:: 10/22/19 Subjective:: PHILLY PIERRE is a 69 year old male who presented with fall and coughing. Patient was found to have a right humeral fracture and pneumonia. He was seen by orthopedics and is being managed with nonsurgical treatment. Patient was also started on IV antibiotics. 10/20: Upon encounter this morning, he appears comfortable. Denies chest pain or shortness of breath. He says his arm pain is well controlled with current regimen. Discussed during [facility] rounds, physical therapy recommends SNF placement. 10/21: No acute event overnight. Denies acute complaints. Pain is well controlled. Patient is now agreeable for SNF placement. 10/22: No acute issues. Patient denies acute complaints. Pain is well controlled. He is medically stable for discharge. Discharge planning currently working with family for SNF placement. Reason For Visit: HUMERUS SHAFT FRACTURE VIRAL UPPER RESPIRATORY Physical Exam Vital Signs: Temp Pulse Resp BP Pulse Ox 98.0 F 93 18 126/76 H 96 10/22/19 11:10 10/22/19 11:10 10/22/19 11:10 10/22/19 11:10 10/22/19 11:10 Intake & Output 10/21/19 10/22/19 10/23/19 06:59 06:59 06:59 Intake Total 2100 3515 530 Output Total 625 1575 Balance 1475 1940 530 Weight 186 lb 11.704 oz 185 lb 3.013 oz General appearance: PRESENT: no acute distress, well-developed, well-nourished Head exam: PRESENT: atraumatic, normocephalic Eye exam: PRESENT: conjunctiva pink, EOMI, PERRLA. ABSENT: scleral icterus Ear exam: PRESENT: normal external ear exam Mouth exam: PRESENT: moist, tongue midline Neck exam: ABSENT: carotid bruit, JVD, lymphadenopathy, thyromegaly Respiratory exam: PRESENT: clear to auscultation juma. ABSENT: rales, rhonchi, wheezes Cardiovascular exam: PRESENT: RRR. ABSENT: diastolic murmur, rubs, systolic murmur Pulses: PRESENT: normal dorsalis pedis pul GI/Abdominal exam: PRESENT: normal bowel sounds, soft. ABSENT: distended, guarding, mass, organolmegaly, rebound, tenderness Rectal exam: PRESENT: deferred Extremities exam: ABSENT: pedal edema Neurological exam: PRESENT: alert, awake, oriented to person, oriented to place, CN II-XII grossly intact. ABSENT: motor sensory deficit Results Laboratory Results: 10/20/19 08:58 10/20/19 08:58 10/16/19 15:28 Blood Blood Culture - Final NO GROWTH IN 5 DAYS 10/16/19 13:00 Blood Blood Culture - Final NO GROWTH IN 5 DAYS Impressions: Forearm X-Ray 10/16/19 10:44 IMPRESSION: No definite acute bony abnormality of the right forearm. Decreased mineralization with degenerative changes about the elbow and wrist. Humerus X-Ray 10/19/19 00:00 IMPRESSION: Unchanged alignment of the transverse displaced fracture through the humeral diaphysis. Wrist X-Ray 10/19/19 00:00 IMPRESSION: No acute osseous abnormality of the right wrist. Chest X-Ray 10/19/19 07:00 IMPRESSION: Unchanged radiographic appearance of the chest. Assessment and Plan - Diagnosis (1) Fracture of shaft of humerus Qualifiers: Encounter type: initial encounter Fracture type: closed Fracture morphology: transverse Fracture alignment: displaced Laterality: right Qualified Code(s): S42.321A - Displaced transverse fracture of shaft of humerus, right arm, initial encounter for closed fracture Is this a current diagnosis for this admission?: Yes Plan: Orthopedics following and is being managed with nonsurgical treatment. (2) Pneumonia Is this a current diagnosis for this admission?: Yes Plan: Continue antibiotics. (3) Dementia Is this a current diagnosis for this admission?: Yes - Plan Summary Summary: Patient will be admitted for broad-spectrum IV antibiotics. No leukocytosis. Chest x-ray is being repeated with 2 views Orthopedics will consult concerning humerus fracture 10/17/2019 Will have orthopedics see the patient on Saturday Adjust pain medication Continue IV antibiotics as well as home meds 10/18/2019 Temperature 97.8 pulse between 80 and 90, blood pressure 140/68 O2 sat 95% on r oom air Patient has significant dementia and I get the impression he was marginal before he came into the hospital as far as his care CBC is normal Chemistry looks normal blood sugars running in around 100 to 120 Blood culture showed no growth in 24 hours Will repeat 2 view chest x-ray tomorrow morning Will DC Dilaudid exchange underwriting consultant to Percocet Check Keppra level Continue IV Rocephin Appreciate orthopedics consult. We will follow their recommendations 10/19/2019 Evidently earlier this morning patient refused to go down with a transporter for his chest x-ray. Patient does not remember doing so. When I saw the patient in the room he was agreeable to going downstairs for his x-rays Since vital signs remained stable his saturation of oxygen is 93% on room air his pulse blood pressure and temperature are all normal Patient's fingerstick blood sugars are anywhere from 76-150. Patient currently is being covered with a sliding scale. I will resume his metformin today. he is currently on Rocephin for his pneumonia. In reviewing patient's two-view chest x-ray today I am not impressed that this is a new finding. However I will continue the Rocephin and err on the conservative side. Patient's pain is being controlled with 1 Percocet, and continuing his Duragesic patch which he was on prior to admission 25 mcq Recent wrist x-ray from today shows no acute fracture. Keppra level is pending Primary diagnosis is #1 fracture of the midshaft right humerus 2 question new onset pneumonia 3 chronic dementia 4 chronic pain Patient was living at home prior to admission and should be able to return home - Time Time Spent with patient: 15-24 minutes
[2019-10-22] MEDS: DORZOLAMIDE HCL 2% OPH SOLN 10 ML OU SCH ×4 (15:45→17:34)
[2019-10-22] MEDS: LATANOPROST 0.005% OPH SOLN 2.5 ML OU SCH ×3 (15:46→21:51)
[2019-10-22] MEDS: DEXTROSE 5%-WATER 1000 ML 1,000 ML IV PRN (17:30)
[2019-10-22] MEDS: ATORVASTATIN CALCIUM 40 MG TABLET PO SCH (21:47)
[2019-10-22] MEDS: TRAZODONE HCL 50 MG TABLET PO SCH (21:50)
[2019-10-23] MEDS: DEXTROSE 5%-WATER 1000 ML 1,000 ML IV PRN ×2 (03:37→14:12)
[2019-10-23] MEDS: OXYCODONE-ACETAMINOPHEN 5-325 MG TABLET PO PRN ×2 (07:54→22:06)
[2019-10-23] MEDS: METFORMIN HCL 500 MG TABLET PO SCH ×2 (07:54→17:14)
[2019-10-23] MEDS: INSULIN LISPRO 100 UNIT/ML 3 ML VIAL SUBCUT SCH ×4 (07:55→21:57)
[2019-10-23] MEDS: ENOXAPARIN SODIUM INJ 40 MG/0.4 ML DISP.SYRIN SUBCUT SCH (10:36)
[2019-10-23] MEDS: CEFTRIAXONE 1 GM/D5W RTU 1 GM/50 ML RTUPB IV SCH (10:36)
[2019-10-23] MEDS: FENTANYL 25 MCG/HR PATCH.TD72 TD SCH (10:37)
[2019-10-23] MEDS: LEVETIRACETAM 500 MG TABLET PO SCH ×2 (10:38→22:06)
[2019-10-23] MEDS: FAMOTIDINE 20 MG TABLET PO SCH ×2 (10:38→22:06)
[2019-10-23] MEDS: TAMSULOSIN HCL 0.4 MG CAP.SR.24H PO SCH (10:38)
[2019-10-23] MEDS: ASPIRIN 81 MG TABLET, CHEWABLE PO SCH (10:38)
[2019-10-23] MEDS: GABAPENTIN 300 MG CAPSULE PO SCH ×3 (10:38→17:13)
[2019-10-23] MEDS: DULOXETINE HCL 30 MG CAPSULE.DR PO SCH ×2 (10:38→17:14)
[2019-10-23] MEDS: DOCUSATE SODIUM 100 MG CAPSULE PO SCH (10:38)
[2019-10-23] MEDS: RIVASTIGMINE 4.6 MG/24 HR PATCH.TD24 TD SCH (10:38)
[2019-10-23] MEDS: FLUTICASONE/VILANTEROL 200-25 MCG/DOSE IH SCH (10:39)
[2019-10-23] MEDS: DORZOLAMIDE HCL 2% OPH SOLN 10 ML OU SCH ×3 (10:40→17:14)
[2019-10-23] MEDS: NYSTATIN TOPICAL POWDER 15 GM TP SCH ×2 (10:40→17:14)
--- NOTE | 2019-10-23 15:42 | PDOC PROGRESS REPORT ---
Subjective Progress Note for:: 10/23/19 Subjective:: PHILLY PIERRE is a 69 year old male who presented with fall and coughing. Patient was found to have a right humeral fracture and pneumonia. He was seen by orthopedics and is being managed with nonsurgical treatment. Patient was also started on IV antibiotics. 10/20: Upon encounter this morning, he appears comfortable. Denies chest pain or shortness of breath. He says his arm pain is well controlled with current regimen. Discussed during [facility] rounds, physical therapy recommends SNF placement. 10/21: No acute event overnight. Denies acute complaints. Pain is well controlled. Patient is now agreeable for SNF placement. 10/22: No acute issues. Patient denies acute complaints. Pain is well controlled. He is medically stable for discharge. Discharge planning currently working with family for SNF placement. 10/23: No acute issues overnight. Patient denies acute complaints. He is comfortable in bed with at bedside. Awaiting insurance authorization for placement. Reason For Visit: HUMERUS SHAFT FRACTURE VIRAL UPPER RESPIRATORY Physical Exam Vital Signs: Temp Pulse Resp BP Pulse Ox 97.8 F 88 16 153/62 H 98 10/23/19 11:41 10/23/19 14:00 10/23/19 11:41 10/23/19 11:41 10/23/19 11:41 Intake & Output 10/22/19 10/23/19 10/24/19 06:59 06:59 06:59 Intake Total 3515 1880 1050 Output Total 1575 200 Balance 1940 1680 1050 Weight 185 lb 3.013 oz 185 lb 3.013 oz 185 lb 3.013 oz General appearance: PRESENT: no acute distress, well-developed, well-nourished Head exam: PRESENT: atraumatic, normocephalic Eye exam: PRESENT: conjunctiva pink, EOMI, PERRLA. ABSENT: scleral icterus Ear exam: PRESENT: normal external ear exam Mouth exam: PRESENT: moist, tongue midline Neck exam: ABSENT: carotid bruit, JVD, lymphadenopathy, thyromegaly Respiratory exam: PRESENT: clear to auscultation juma. ABSENT: rales, rhonchi, wheezes Pulses: PRESENT: normal dorsalis pedis pul GI/Abdominal exam: PRESENT: normal bowel sounds, soft. ABSENT: distended, guarding, mass, organolmegaly, rebound, tenderness Rectal exam: PRESENT: deferred Neurological exam: PRESENT: alert, awake, oriented to person, oriented to place, oriented to time, CN II-XII grossly intact. ABSENT: motor sensory deficit Results Laboratory Results: 10/20/19 08:58 10/20/19 08:58 Impressions: Forearm X-Ray 10/16/19 10:44 IMPRESSION: No definite acute bony abnormality of the right forearm. Decreased mineralization with degenerative changes about the elbow and wrist. Humerus X-Ray 10/19/19 00:00 IMPRESSION: Unchanged alignment of the transverse displaced fracture through the humeral diaphysis. Wrist X-Ray 10/19/19 00:00 IMPRESSION: No acute osseous abnormality of the right wrist. Chest X-Ray 10/19/19 07:00 IMPRESSION: Unchanged radiographic appearance of the chest. Assessment and Plan - Diagnosis (1) Fracture of shaft of humerus Qualifiers: Encounter type: initial encounter Fracture type: closed Fracture morphology: transverse Fracture alignment: displaced Laterality: right Qualified Code(s): S42.321A - Displaced transverse fracture of shaft of humerus, right arm, initial encounter for closed fracture Is this a current diagnosis for this admission?: Yes Plan: Orthopedics following and is being managed with nonsurgical treatment. (2) Pneumonia Is this a current diagnosis for this admission?: Yes Plan: Continue antibiotics. (3) Dementia Is this a current diagnosis for this admission?: Yes - Plan Summary Summary: Patient will be admitted for broad-spectrum IV antibiotics. No leukocytosis. Chest x-ray is being repeated with 2 views Orthopedics will consult concerning humerus fracture 10/17/2019 Will have orthopedics see the patient on Saturday Adjust pain medication Continue IV antibiotics as well as home meds 10/18/2019 Temperature 97.8 pulse between 80 and 90, blood pressure 140/68 O2 sat 95% on room air Patient has significant dementia and I get the impression he was marginal before he came into the hospital as far as his care CBC is normal Chemistry looks normal blood sugars running in around 100 to 120 Blood culture showed no growth in 24 hours Will repeat 2 view chest x-ray tomorrow morning Will DC Dilaudid pack changer to Percocet Check Keppra level Continue IV Rocephin Appreciate orthopedics consult. We will follow their recommendations 10/19/2019 Evidently earlier this morning patient refused to go down with a transporter for his chest x-ray. Patient does not remember doing so. When I saw the patient in the room he was agreeable to going downstairs for his x-rays Since vital signs remained stable his saturation of oxygen is 93% on room air his pulse blood pressure and temperature are all normal Patient's fingerstick blood sugars are anywhere from 76-150. Patient currently is being covered with a sliding scale. I will resume his metformin today. he is currently on Rocephin for his pneumonia. In reviewing patient's two-view chest x-ray today I am not impressed that this is a new finding. However I will continue the Rocephin and err on the conservative side. Patient's pain is being controlled with 1 Percocet, and continuing his Duragesic patch which he was on prior to admission 25 mcq Recent wrist x-ray from today shows no acute fracture. Keppra level is pending Primary diagnosis is #1 fracture of the midshaft right humerus 2 question new onset pneumonia 3 chronic dementia 4 chronic pain Patient was living at home prior to admission and should be able to return home - Time Time Spent with patient: 15-24 minutes
[2019-10-23] MEDS: LATANOPROST 0.005% OPH SOLN 2.5 ML OU SCH (22:05)
[2019-10-23] MEDS: ATORVASTATIN CALCIUM 40 MG TABLET PO SCH (22:06)
[2019-10-23] MEDS: TRAZODONE HCL 50 MG TABLET PO SCH (22:06)
[2019-10-24] MEDS: DEXTROSE 5%-WATER 1000 ML 1,000 ML IV PRN ×3 (00:58→22:41)
[2019-10-24] MEDS: OXYCODONE-ACETAMINOPHEN 5-325 MG TABLET PO PRN ×3 (06:53→22:30)
[2019-10-24] MEDS: INSULIN LISPRO 100 UNIT/ML 3 ML VIAL SUBCUT SCH ×4 (09:41→22:14)
[2019-10-24] MEDS: FLUTICASONE/VILANTEROL 200-25 MCG/DOSE IH SCH (09:42)
[2019-10-24] MEDS: RIVASTIGMINE 4.6 MG/24 HR PATCH.TD24 TD SCH (09:42)
[2019-10-24] MEDS: METFORMIN HCL 500 MG TABLET PO SCH (09:43)
[2019-10-24] MEDS: TAMSULOSIN HCL 0.4 MG CAP.SR.24H PO SCH (09:43)
[2019-10-24] MEDS: GABAPENTIN 300 MG CAPSULE PO SCH ×3 (09:43→17:32)
[2019-10-24] MEDS: ASPIRIN 81 MG TABLET, CHEWABLE PO SCH (09:43)
[2019-10-24] MEDS: FAMOTIDINE 20 MG TABLET PO SCH ×2 (09:43→22:21)
[2019-10-24] MEDS: DULOXETINE HCL 30 MG CAPSULE.DR PO SCH ×2 (09:43→17:32)
[2019-10-24] MEDS: DOCUSATE SODIUM 100 MG CAPSULE PO SCH (09:43)
[2019-10-24] MEDS: ENOXAPARIN SODIUM INJ 40 MG/0.4 ML DISP.SYRIN SUBCUT SCH (09:43)
[2019-10-24] MEDS: LEVETIRACETAM 500 MG TABLET PO SCH ×2 (09:43→22:21)
[2019-10-24] MEDS: DORZOLAMIDE HCL 2% OPH SOLN 10 ML OU SCH ×3 (09:44→17:37)
--- NOTE | 2019-10-24 14:08 | PDOC PROGRESS REPORT ---
Subjective Progress Note for:: 10/24/19 Subjective:: PHILLY PIERRE is a 69 year old male who presented with fall and coughing. Patient was found to have a right humeral fracture and pneumonia. He was seen by orthopedics and is being managed with nonsurgical treatment. Patient was also started on IV antibiotics. 10/20: Upon encounter this morning, he appears comfortable. Denies chest pain or shortness of breath. He says his arm pain is well controlled with current regimen. Discussed during [facility] rounds, physical therapy recommends SNF placement. 10/21: No acute event overnight. Denies acute complaints. Pain is well controlled. Patient is now agreeable for SNF placement. 10/22: No acute issues. Patient denies acute complaints. Pain is well controlled. He is medically stable for discharge. Discharge planning currently working with family for SNF placement. 10/23: Patient denies acute complaints. He is comfortable in bed with at bedside. Awaiting insurance authorization for placement. 10/24: No acute issues overnight. He did have an episode of hypoglycemia at 60. Otherwise denies acute complaints. Still awaiting for insurance authorization for placement. Reason For Visit: HUMERUS SHAFT FRACTURE VIRAL UPPER RESPIRATORY Physical Exam Vital Signs: Temp Pulse Resp BP Pulse Ox 97.8 F 87 16 106/64 97 10/24/19 11:57 10/24/19 11:57 10/24/19 11:57 10/24/19 11:57 10/24/19 11:57 Intake & Output 10/23/19 10/24/19 10/25/19 06:59 06:59 06:59 Intake Total 1880 2751 Output Total 200 1600 Balance 1680 1151 Weight 185 lb 3.013 oz 188 lb 7.924 oz General appearance: PRESENT: no acute distress, well-developed, well-nourished Head exam: PRESENT: atraumatic, normocephalic Eye exam: PRESENT: conjunctiva pink, EOMI, PERRLA. ABSENT: scleral icterus Ear exam: PRESENT: normal external ear exam Mouth exam: PRESENT: moist, tongue midline Neck exam: ABSENT: carotid bruit, JVD, lymphadenopathy, thyromegaly Respiratory exam: PRESENT: clear to auscultation juma. ABSENT: rales, rhonchi, wheezes Cardiovascular exam: PRESENT: RRR. ABSENT: diastolic murmur, rubs, systolic murmur GI/Abdominal exam: PRESENT: normal bowel sounds, soft. ABSENT: distended, guarding, mass, organolmegaly, rebound, tenderness Rectal exam: PRESENT: deferred Neurological exam: PRESENT: alert, awake, oriented to person, oriented to place, oriented to time, CN II-XII grossly intact. ABSENT: motor sensory deficit Results Laboratory Results: 10/20/19 08:58 10/20/19 08:58 Impressions: Forearm X-Ray 10/16/19 10:44 IMPRESSION: No definite acute bony abnormality of the right forearm. Decreased mineralization with degenerative changes about the elbow and wrist. Humerus X-Ray 10/19/19 00:00 IMPRESSION: Unchanged alignment of the transverse displaced fracture through the humeral diaphysis. Wrist X-Ray 10/19/19 00:00 IMPRESSION: No acute osseous abnormality of the right wrist. Chest X-Ray 10/19/19 07:00 IMPRESSION: Unchanged radiographic appearance of the chest. Assessment and Plan - Diagnosis (1) Fracture of shaft of humerus Qualifiers: Encounter type: initial encounter Fracture type: closed Fracture morphology: transverse Fracture alignment: displaced Laterality: right Qualified Code(s): S42.321A - Displaced transverse fracture of shaft of humerus, right arm, initial encounter for closed fracture Is this a current diagnosis for this admission?: Yes Plan: Orthopedics following and is being managed with nonsurgical treatment. 10/24: Awaiting placement. (2) Pneumonia Is this a current diagnosis for this admission?: Yes Plan: Continue antibiotics. (3) Dementia Is this a current diagnosis for this admission?: Yes (4) DM type 2 (diabetes mellitus, type 2) Is this a current diagnosis for this admission?: Yes Plan: 10/24: He did have an episode of hypoglycemia at 60. Hold metformin. Will recheck A1c. - Plan Summary Summary: Patient will be admitted for broad-spectrum IV antibiotics. No leukocytosis. Chest x-ray is being repeated with 2 views Orthopedics will consult concerning humerus fracture 10/17/2019 Will have orthopedics see the patient on Saturday Adjust pain medication Continue IV antibiotics as well as home meds 10/18/2019 Temperature 97.8 pulse between 80 and 90, blood pressure 140/68 O2 sat 95% on room air Patient has significant dementia and I get the impression he was marginal before he came into the hospital as far as his care CBC is normal Chemistry looks normal blood sugars running in around 100 to 120 Blood culture showed no growth in 24 hours Will repeat 2 view chest x-ray tomorrow morning Will DC Dilaudid slubber frame changer to Percocet Check Keppra level Continue IV Rocephin Appreciate orthopedics consult. We will follow their recommendations 10/19/2019 Evidently earlier this morning patient refused to go down with a transporter for his chest x-ray. Patient does not remember doing so. When I saw the patient in the room he was agreeable to going downstairs for his x-rays Since vital signs remained stable his saturation of oxygen is 93% on room air his pulse blood pressure and temperature are all normal Patient's fingerstick blood sugars are anywhere from 76-150. Patient currently is being covered with a sliding scale. I will resume his metformin today. he is currently on Rocephin for his pneumonia. In reviewing patient's two-view chest x-ray today I am not impressed that this is a new finding. However I will continue the Rocephin and err on the conservative side. Patient's pain is being controlled with 1 Percocet, and continuing his Duragesic patch which he was on prior to admission 25 mcq Recent wrist x-ray from today shows no acute fracture. Keppra level is pending Primary diagnosis is #1 fracture of the midshaft right humerus 2 question new onset pneumonia 3 chronic dementia 4 chronic pain Patient was living at home prior to admission and should be able to return home - Time Time Spent with patient: 15-24 minutes
[2019-10-24] MEDS: TRAZODONE HCL 50 MG TABLET PO SCH (22:21)
[2019-10-24] MEDS: ATORVASTATIN CALCIUM 40 MG TABLET PO SCH (22:22)
[2019-10-24] MEDS: LATANOPROST 0.005% OPH SOLN 2.5 ML OU SCH (22:23)
--- NOTE | 2019-10-25 08:34 | RADIOLOGY REPORT (SQ) ---
EXAM DESCRIPTION: CHEST SINGLE VIEW COMPLETED DATE/TIME: 10/25/2019 8:05 am REASON FOR STUDY: reassess prior infiltrates, completing antibiotics COMPARISON: 10/19/2019. EXAM PARAMETERS: NUMBER OF VIEWS: One view. TECHNIQUE: Single frontal radiographic view of the chest acquired. RADIATION DOSE: NA LIMITATIONS: None. FINDINGS: LUNGS AND PLEURA: Volume loss on the right with small pleural effusion versus mild pleural blunting in the costophrenic angle. Left lung clear. MEDIASTINUM AND HILAR STRUCTURES: No masses. Contour normal. HEART AND VASCULAR STRUCTURES: Heart upper limits of normal in size. Normal vasculature. BONES: No acute findings. HARDWARE: Spinal stimulator hardware. OTHER: No other significant finding. IMPRESSION: NO CHANGE IN APPEARANCE OF THE CHEST. TECHNICAL DOCUMENTATION: JOB ID: [id number] [employer]- All Rights Reserved Reading location - IP/workstation name: [email or web address]
[2019-10-25] MEDS: LEVETIRACETAM 500 MG TABLET PO SCH ×2 (09:01→21:41)
[2019-10-25] MEDS: GABAPENTIN 300 MG CAPSULE PO SCH ×3 (09:01→17:18)
[2019-10-25] MEDS: FAMOTIDINE 20 MG TABLET PO SCH ×2 (09:01→21:41)
[2019-10-25] MEDS: DOCUSATE SODIUM 100 MG CAPSULE PO SCH (09:01)
[2019-10-25] MEDS: DORZOLAMIDE HCL 2% OPH SOLN 10 ML OU SCH ×3 (09:01→17:19)
[2019-10-25] MEDS: OXYCODONE-ACETAMINOPHEN 5-325 MG TABLET PO PRN ×2 (09:01→19:46)
[2019-10-25] MEDS: TAMSULOSIN HCL 0.4 MG CAP.SR.24H PO SCH (09:02)
[2019-10-25] MEDS: ASPIRIN 81 MG TABLET, CHEWABLE PO SCH (09:02)
[2019-10-25] MEDS: DULOXETINE HCL 30 MG CAPSULE.DR PO SCH ×2 (09:02→17:18)
[2019-10-25] MEDS: ENOXAPARIN SODIUM INJ 40 MG/0.4 ML DISP.SYRIN SUBCUT SCH (09:02)
[2019-10-25] MEDS: FLUTICASONE/VILANTEROL 200-25 MCG/DOSE IH SCH (09:03)
[2019-10-25] MEDS: INSULIN LISPRO 100 UNIT/ML 3 ML VIAL SUBCUT SCH (09:03)
[2019-10-25] MEDS: RIVASTIGMINE 4.6 MG/24 HR PATCH.TD24 TD SCH (09:03)
[2019-10-25] MEDS: DEXTROSE 5%-WATER 1000 ML 1,000 ML IV PRN ×2 (09:09→21:55)
--- NOTE | 2019-10-25 11:25 | PDOC PROGRESS REPORT ---
Subjective Progress Note for:: 10/25/19 Subjective:: PHILLY PIERRE is a 69 year old male who presented with fall and coughing. Patient was found to have a right humeral fracture and pneumonia. He was seen by orthopedics and is being managed with nonsurgical treatment. Patient was also started on IV antibiotics. 10/20: Upon encounter this morning, he appears comfortable. Denies chest pain or shortness of breath. He says his arm pain is well controlled with current regimen. Discussed during CAPP rounds, physical therapy recommends SNF placement. 10/21: No acute event overnight. Denies acute complaints. Pain is well controlled. Patient is now agreeable for SNF placement. 10/22: No acute issues. Patient denies acute complaints. Pain is well controlled. He is medically stable for discharge. Discharge planning currently working with family for SNF placement. 10/23: Patient denies acute complaints. He is comfortable in bed with at bedside. Awaiting insurance authorization for placement. 10/24: No acute issues overnight. He did have an episode of hypoglycemia at 60. Otherwise denies acute complaints. Still awaiting for insurance authorization for placement. 10/25: No acute event overnight. Denies acute complaints. Patient is awaiting placement. No recurrence of hypoglycemia. Hba1c came back at 5.8. Metformin has been discontinued. Suspect hypoglycemia might have contributed to patient's fall at home. Discontinue diabetic medication at this time especially given his advanced age. Reason For Visit: HUMERUS SHAFT FRACTURE VIRAL UPPER RESPIRATORY Physical Exam Vital Signs: Temp Pulse Resp BP Pulse Ox 97.9 F 74 16 137/81 H 95 10/25/19 07:49 10/25/19 07:49 10/25/19 07:49 10/25/19 07:49 10/25/19 07:49 Intake & Output 10/24/19 10/25/19 10/26/19 06:59 06:59 06:59 Intake Total 2751 2866 1000 Output Total 1600 1850 Balance 1151 1016 1000 Weight 188 lb 7.924 oz 191 lb 5.78 oz General appearance: PRESENT: no acute distress, well-developed, well-nourished Head exam: PRESENT: atraumatic, normocephalic Eye exam: PRESENT: conjunctiva pink, EOMI, PERRLA. ABSENT: scleral icterus Ear exam: PRESENT: normal external ear exam Mouth exam: PRESENT: moist, tongue midline Neck exam: ABSENT: carotid bruit, JVD, lymphadenopathy, thyromegaly Respiratory exam: PRESENT: rhonchi. ABSENT: rales, wheezes Cardiovascular exam: PRESENT: RRR. ABSENT: diastolic murmur, rubs, systolic murmur Pulses: PRESENT: normal dorsalis pedis pul GI/Abdominal exam: PRESENT: normal bowel sounds, soft. ABSENT: distended, guarding, mass, organolmegaly, rebound, tenderness Rectal exam: PRESENT: deferred Neurological exam: PRESENT: alert, awake, oriented to person, oriented to place, oriented to time, oriented to situation, CN II-XII grossly intact. ABSENT: nazario r sensory deficit Results Laboratory Results: 10/20/19 08:58 10/20/19 08:58 Impressions: Forearm X-Ray 10/16/19 10:44 IMPRESSION: No definite acute bony abnormality of the right forearm. Decreased mineralization with degenerative changes about the elbow and wrist. Humerus X-Ray 10/19/19 00:00 IMPRESSION: Unchanged alignment of the transverse displaced fracture through the humeral diaphysis. Wrist X-Ray 10/19/19 00:00 IMPRESSION: No acute osseous abnormality of the right wrist. Chest X-Ray 10/25/19 07:00 IMPRESSION: NO CHANGE IN APPEARANCE OF THE CHEST. Assessment and Plan - Diagnosis (1) Fracture of shaft of humerus Qualifiers: Encounter type: initial encounter Fracture type: closed Fracture morphology: transverse Fracture alignment: displaced Laterality: right Qualified Code(s): S42.321A - Displaced transverse fracture of shaft of humerus, right arm, initial encounter for closed fracture Is this a current diagnosis for this admission?: Yes Plan: Orthopedics following and is being managed with nonsurgical treatment. 10/24: Awaiting placement. (2) Pneumonia Is this a current diagnosis for this admission?: Yes Plan: Completed IV antibiotics. (3) Dementia Is this a current diagnosis for this admission?: Yes (4) DM type 2 (diabetes mellitus, type 2) Is this a current diagnosis for this admission?: Yes Plan: 10/24: He did have an episode of hypoglycemia at 60. Hold metformin. Will recheck A1c. 10/25: No recurrence of hypoglycemia. Hba1c came back at 5.8. Metformin has been discontinued. Suspect hypoglycemia might have contributed to patient's fall at home. Discontinue diabetic medication at this time especially given his advanced age. - Plan Summary Summary: Patient will be admitted for broad-spectrum IV antibiotics. No leukocytosis. Chest x-ray is being repeated with 2 views Orthopedics will consult concerning humerus fracture 10/17/2019 Will have orthopedics see the patient on Saturday Adjust pain medication Continue IV antibiotics as well as home meds 10/18/2019 Temperature 97.8 pulse between 80 and 90, blood pressure 140/68 O2 sat 95% on room air Patient has significant dementia and I get the impression he was marginal before he came into the hospital as far as his care CBC is normal Chemistry looks normal blood sugars running in around 100 to 120 Blood culture showed no growth in 24 hours Will repeat 2 view chest x-ray tomorrow morning Will DC Dilaudid exchange administrator to Percocet Check Keppra level Continue IV Rocephin Appreciate orthopedics consult. We will follow their recommendations 10/19/2019 Evidently earlier this morning patient refused to go down with a transporter for his chest x-ray. Patient does not remember doing so. When I saw the patient in the room he was agreeable to going downstairs for his x-rays Since vital signs remained stable his saturation of oxygen is 93% on room air his pulse blood pressure and temperature are all normal Patient's fingerstick blood sugars are anywhere from 76-150. Patient currently is being covered with a sliding scale. I will resume his metformin today. he is currently on Rocephin for his pneumonia. In reviewing patient's two-view chest x-ray today I am not impressed that this is a new finding. However I will continue the Rocephin and err on the conservative side. Patient's pain is being controlled with 1 Percocet, and continuing his Duragesic patch which he was on prior to admission 25 mcq Recent wrist x-ray from today shows no acute fracture. Keppra level is pending Primary diagnosis is #1 fracture of the midshaft right humerus 2 question new onset pneumonia 3 chronic dementia 4 chronic pain Patient was living at home prior to admission and should be able to return home - Time Time Spent with patient: 15-24 minutes
[2019-10-25 12:02] LABS: ABSOLUTE BASOPHILS # (AUTO) 0.1 10^3/uL (0.0-0.2); ABSOLUTE EOSINOPHILS # (AUTO) 0.2 10^3/uL (0.0-0.6); ABSOLUTE LYMPHOCYTES (AUTO) 1.5 10^3/uL (0.5-4.7); ABSOLUTE MONOCYTES (AUTO) 1.1 10^3/uL (0.1-1.4); ABSOLUTE NEUT (AUTO) 6.7 10^3/uL (1.7-8.2); BASOPHILS % (AUTO) 0.9 % (0-2); HEMOGLOBIN 10.5 g/dL (13.5-17.0); LYMPHOCYTES % (AUTO) 15.7 % (13-45); MEAN CORPUSCULAR HEMOGLOBIN 24.4 pg (27.0-33.4); MEAN CORPUSCULAR HGB CONC 32.6 g/dL (32.0-36.0); MEAN CORPUSCULAR VOLUME 75 fl (80-97); MONOCYTES % (AUTO) 11.1 % (3-13); PLATELET COUNT 441 10^3/uL (150-450); RED BLOOD COUNT 4.28 10^6/uL (4.35-5.55); RED CELL DISTRIBUTION WIDTH 16.5 % (11.5-14.0); SEGMENTED NEUTROPHILS % (AUTO) 70.3 % (42-78); TOTAL CELLS COUNTED % (AUTO) 100 %; WHITE BLOOD COUNT 9.6 10^3/uL (4.0-10.5)
[2019-10-25 12:19] LABS: ANION GAP 8 (5-19); BLOOD UREA NITROGEN 13 mg/dL (7-20); CALCIUM 8.6 mg/dL (8.4-10.2); CARBON DIOXIDE 28 mmol/L (22-30); CHLORIDE 96 mmol/L (98-107); GLUCOSE 101 mg/dL (75-110); POTASSIUM 4.4 mmol/L (3.6-5.0)
[2019-10-25] MEDS: FUROSEMIDE INJ/PF 20 MG/2 ML SDV IV SCH ×2 (14:07→21:40)
[2019-10-25] MEDS: TRAZODONE HCL 50 MG TABLET PO SCH (21:41)
[2019-10-25] MEDS: ACETAMINOPHEN 325 MG TABLET PO PRN (21:41)
[2019-10-25] MEDS: ATORVASTATIN CALCIUM 40 MG TABLET PO SCH (21:41)
[2019-10-25] MEDS: LATANOPROST 0.005% OPH SOLN 2.5 ML OU SCH (21:42)
[2019-10-26] MEDS: FENTANYL 25 MCG/HR PATCH.TD72 TD SCH (09:53)
[2019-10-26] MEDS: ENOXAPARIN SODIUM INJ 40 MG/0.4 ML DISP.SYRIN SUBCUT SCH (09:54)
[2019-10-26] MEDS: FUROSEMIDE INJ/PF 20 MG/2 ML SDV IV SCH ×2 (09:54→21:35)
[2019-10-26] MEDS: GABAPENTIN 300 MG CAPSULE PO SCH ×3 (09:54→18:08)
[2019-10-26] MEDS: DOCUSATE SODIUM 100 MG CAPSULE PO SCH (09:54)
[2019-10-26] MEDS: DULOXETINE HCL 30 MG CAPSULE.DR PO SCH ×2 (09:54→18:08)
[2019-10-26] MEDS: FAMOTIDINE 20 MG TABLET PO SCH ×2 (09:54→21:35)
[2019-10-26] MEDS: LEVETIRACETAM 500 MG TABLET PO SCH ×2 (09:54→21:36)
[2019-10-26] MEDS: TAMSULOSIN HCL 0.4 MG CAP.SR.24H PO SCH (09:54)
[2019-10-26] MEDS: ASPIRIN 81 MG TABLET, CHEWABLE PO SCH (09:54)
[2019-10-26] MEDS: FLUTICASONE/VILANTEROL 200-25 MCG/DOSE IH SCH (09:55)
[2019-10-26] MEDS: DORZOLAMIDE HCL 2% OPH SOLN 10 ML OU SCH ×3 (09:56→18:08)
[2019-10-26] MEDS: RIVASTIGMINE 4.6 MG/24 HR PATCH.TD24 TD SCH (09:56)
[2019-10-26] MEDS: OXYCODONE-ACETAMINOPHEN 5-325 MG TABLET PO PRN (10:14)
--- NOTE | 2019-10-26 13:54 | PDOC PROGRESS REPORT ---
Subjective Progress Note for:: 10/26/19 Subjective:: PHILLY PIERRE is a 69 year old male who presented with fall and coughing. Patient was found to have a right humeral fracture and pneumonia. He was seen by orthopedics and is being managed with nonsurgical treatment. Patient was also started on IV antibiotics. 10/20: Upon encounter this morning, he appears comfortable. Denies chest pain or shortness of breath. He says his arm pain is well controlled with current regimen. Discussed during CAPP rounds, physical therapy recommends SNF placement. 10/21: No acute event overnight. Denies acute complaints. Pain is well controlled. Patient is now agreeable for SNF placement. 10/22: No acute issues. Patient denies acute complaints. Pain is well controlled. He is medically stable for discharge. Discharge planning currently working with family for SNF placement. 10/23: Patient denies acute complaints. He is comfortable in bed with at bedside. Awaiting insurance authorization for placement. 10/24: No acute issues overnight. He did have an episode of hypoglycemia at 60. Otherwise denies acute complaints. Still awaiting for insurance authorization for placement. 10/25: No acute event overnight. Denies acute complaints. Patient is awaiting placement. No recurrence of hypoglycemia. Hba1c came back at 5.8. Metformin has been discontinued. Suspect hypoglycemia might have contributed to patient's fall at home. Discontinue diabetic medication at this time especially given his advanced age. 10/26: No acute issues. Patient denies acute complaints. No recurrence of hypoglycemia. Patient is just awaiting placement pending insurance authorization. Reason For Visit: HUMERUS SHAFT FRACTURE VIRAL UPPER RESPIRATORY Physical Exam Vital Signs: Temp Pulse Resp BP Pulse Ox 97.8 F 74 16 94/59 L 95 10/26/19 12:29 10/26/19 12:29 10/26/19 12:29 10/26/19 12:29 10/26/19 12:29 Intake & Output 10/25/19 10/26/19 10/27/19 06:59 06:59 06:59 Intake Total 2866 3504 Output Total 1850 500 Balance 1016 3004 Weight 191 lb 5.78 oz 188 lb 14.978 oz General appearance: PRESENT: no acute distress, well-developed, well-nourished Head exam: PRESENT: atraumatic, normocephalic Eye exam: PRESENT: conjunctiva pink, EOMI, PERRLA. ABSENT: scleral icterus Ear exam: PRESENT: normal external ear exam Mouth exam: PRESENT: moist, tongue midline Neck exam: ABSENT: carotid bruit, JVD, lymphadenopathy, thyromegaly Respiratory exam: PRESENT: clear to auscultation juma. ABSENT: rales, rhonchi, w heezes Cardiovascular exam: PRESENT: RRR. ABSENT: diastolic murmur, rubs, systolic murmur Pulses: PRESENT: normal dorsalis pedis pul GI/Abdominal exam: PRESENT: normal bowel sounds, soft. ABSENT: distended, guarding, mass, organolmegaly, rebound, tenderness Rectal exam: PRESENT: deferred Neurological exam: PRESENT: alert, awake, oriented to person, oriented to place, CN II-XII grossly intact. ABSENT: motor sensory deficit Results Laboratory Results: 10/25/19 11:50 10/25/19 11:50 Impressions: Forearm X-Ray 10/16/19 10:44 IMPRESSION: No definite acute bony abnormality of the right forearm. Decreased mineralization with degenerative changes about the elbow and wrist. Humerus X-Ray 10/19/19 00:00 IMPRESSION: Unchanged alignment of the transverse displaced fracture through the humeral diaphysis. Wrist X-Ray 10/19/19 00:00 IMPRESSION: No acute osseous abnormality of the right wrist. Chest X-Ray 10/25/19 07:00 IMPRESSION: NO CHANGE IN APPEARANCE OF THE CHEST. Assessment and Plan - Diagnosis (1) Fracture of shaft of humerus Qualifiers: Encounter type: initial encounter Fracture type: closed Fracture morphology: transverse Fracture alignment: displaced Laterality: right Qualified Code(s): S42.321A - Displaced transverse fracture of shaft of humerus, right arm, initial encounter for closed fracture Is this a current diagnosis for this admission?: Yes Plan: Orthopedics following and is being managed with nonsurgical treatment. 10/26: Awaiting placement. (2) Pneumonia Is this a current diagnosis for this admission?: Yes Plan: Completed IV antibiotics. (3) Dementia Is this a current diagnosis for this admission?: Yes (4) DM type 2 (diabetes mellitus, type 2) Is this a current diagnosis for this admission?: Yes Plan: 10/24: He did have an episode of hypoglycemia at 60. Hold metformin. Will recheck A1c. 10/25: No recurrence of hypoglycemia. Hba1c came back at 5.8. Metformin has been discontinued. Suspect hypoglycemia might have contributed to patient's fall at home. Discontinue diabetic medication at this time especially given his advanced age. - Plan Summary Summary: Patient will be admitted for broad-spectrum IV antibiotics. No leukocytosis. Chest x-ray is being repeated with 2 views Orthopedics will consult concerning humerus fracture 10/17/2019 Will have orthopedics see the patient on Saturday Adjust pain medication Continue IV antibiotics as well as home meds 10/18/2019 Temperature 97.8 pulse between 80 and 90, blood pressure 140/68 O2 sat 95% on room air Patient has significant dementia and I get the impression he was marginal before he came into the hospital as far as his care CBC is normal Chemistry looks normal blood sugars running in around 100 to 120 Blood culture showed no growth in 24 hours Will repeat 2 view chest x-ray tomorrow morning Will DC Dilaudid exchange consultant to Percocet Check Keppra level Continue IV Rocephin Appreciate orthopedics consult. We will follow their recommendations 10/19/2019 Evidently earlier this morning patient refused to go down with a transporter for his chest x-ray. Patient does not remember doing so. When I saw the patient in the room he was agreeable to going downstairs for his x-rays Since vital signs remained stable his saturation of oxygen is 93% on room air his pulse blood pressure and temperature are all normal Patient's fingerstick blood sugars are anywhere from 76-150. Patient currently is being covered with a sliding scale. I will resume his metformin today. he is currently on Rocephin for his pneumonia. In reviewing patient's two-view chest x-ray today I am not impressed that this is a new finding. However I will continue the Rocephin and err on the conservative side. Patient's pain is being controlled with 1 Percocet, and continuing his Duragesic patch which he was on prior to admission 25 mcq Recent wrist x-ray from today shows no acute fracture. Keppra level is pending Primary diagnosis is #1 fracture of the midshaft right humerus 2 question new onset pneumonia 3 chronic dementia 4 chronic pain Patient was living at home prior to admission and should be able to return home - Time Time Spent with patient: 15-24 minutes
--- NOTE | 2019-10-26 15:53 | XCELERA REPORT ---
[address] [address] Transthoracic Echocardiogram Report Name: PHILLY PIERRE Age: 69 yrs Gender: Male : 1950 Patient Status: Inpatient Patient Location: [address] [place] [address] Study Date: 10/26/2019 11:35 AM Height: 66 in Weight: 191 lb BSA: 2.0 m2 Procedure: A two-dimensional transthoracic echocardiogram with color flow and Doppler was performed. Images were not obtained from all of the standard acoustic windows due to the limited scope of the study. Reason For Study: SOB, plueral effusions History: SOB / PLEURAL EFFUSIONS. Ordering Physician: BETY OSBORN Performed By: Maribell Lopez Interpretation Summary The left ventricle is normal in size. There is normal left ventricular wall thickness. No True apical 2 chamber views obtained.Hence cannot comment on the apical anterior , the basal anterior, the basal inferior and apical inferior ibarra.The mid anterior , the mid inferior and the rest of the LV ibarra contract normally. .LVEF is normal and is greater than 65% in the limited views. Doppler measurements suggest impaired left ventricular relaxation, which is associated with grade I/IV or mild diastolic dysfunction There is no thrombus. No ASD,VD ,or PFO seen. The right ventricle is normal in size and function. The right atrium is normal. The left atrial size is normal. There is no evidence of mitral valve prolapse. There is no vegetation seen on the mitral valve. There is no mitral valve stenosis. There is a trace amount of mitral regurgitation There is no aortic valve stenosis There is no aortic valvular vegetation. There is no LVOT obstruction. No aortic regurgitation is present. There is no tricuspid stenosis. There is a trace amount of tricuspid regurgitation Right ventricular systolic pressure is normal. RVSP is 17 to 22 mm of Hg , with RA mean of 5 to 10. There is no pulmonic valvular stenosis. There is no pulmonic valvular regurgitation. The aortic root is normal size. The inferior vena cava appeared normal and decreased > 50% with respiration (RAP 5-10 mmHg) There is no pericardial effusion. MMode/2D Measurements & Calculations RVDd: 3.3 cm LVIDd: 4.6 cm FS: 45.6 % Ao root diam: 3.2 cm IVSd: 1.0 cm LVIDs: 2.5 cm EDV(Teich): 98.4 ml Ao root area: 7.8 cm2 LVPWd: 1.0 cm ESV(Teich): 22.7 ml LA dimension: 3.5 cm EF(Teich): 77.0 % Doppler Measurements & Calculations MV E max joe: MV P1/2t max joe: Ao V2 max: LV V1 max P.9 cm/sec 42.9 cm/sec 88.4 cm/sec 2.1 mmHg MV A max joe: MV P1/2t: 65.7 msec Ao max P.1 mmHg LV V1 max: 48.4 cm/sec MVA(P1/2t): 3.3 cm2 72.6 cm/sec MV E/A: 0.91 MV dec slope: 191.4 cm/sec2 MV dec time: 0.21 sec PA V2 max: TR max joe: MV P1/2t-pr_phl: 94.8 cm/sec 169.7 cm/sec 65.7 msec PA max P.6 mmHgTR max P.5 mmHg Left Ventricle The left ventricle is normal in size. There is normal left ventricular wall thickness. No True apical 2 chamber views obtained.Hence cannot comment on the apical anterior , the basal anterior, the basal inferior and apical inferior ibarra.The mid anterior , the mid inferior and the rest of the LV ibarra contract normally. .LVEF is normal and is greater than 65% in the limited views. Doppler measurements suggest impaired left ventricular relaxation, which is associated with grade I/IV or mild diastolic dysfunction. There is no thrombus. No ASD,VD ,or PFO seen. Right Ventricle The right ventricle is normal in size and function. Atria The right atrium is normal. The left atrial size is normal. Mitral Valve There is no evidence of mitral valve prolapse. There is no vegetation seen on the mitral valve. There is no mitral valve stenosis. There is a trace amount of mitral regurgitation. Aortic Valve There is no aortic valvular vegetation. There is no aortic valve stenosis. There is no LVOT obstruction. No aortic regurgitation is present. Tricuspid Valve There is no tricuspid stenosis. There is a trace amount of tricuspid regurgitation. Right ventricular systolic pressure is normal. RVSP is 17 to 22 mm of Hg , with RA mean of 5 to 10. Pulmonic Valve There is no pulmonic valvular stenosis. There is no pulmonic valvular regurgitation. Great Vessels The aortic root is normal size. The inferior vena cava appeared normal and decreased > 50% with respiration (RAP 5-10 mmHg). Effusions There is no pericardial effusion. : BETY OSBORN, Matilde
[2019-10-26] MEDS: ERGOCALCIFEROL (VITAMIN D2) 50000 UNIT (1.25 MG) CAPSULE PO SCH (18:08)
[2019-10-26] MEDS: DEXTROSE 5%-WATER 1000 ML 1,000 ML IV PRN (20:13)
[2019-10-26] MEDS: TRAZODONE HCL 50 MG TABLET PO SCH (21:35)
[2019-10-26] MEDS: ATORVASTATIN CALCIUM 40 MG TABLET PO SCH (21:35)
[2019-10-26] MEDS: ACETAMINOPHEN 325 MG TABLET PO PRN (21:36)
[2019-10-26] MEDS: LATANOPROST 0.005% OPH SOLN 2.5 ML OU SCH (21:37)
[2019-10-27] MEDS: DEXTROSE 5%-WATER 1000 ML 1,000 ML IV PRN (06:15)
[2019-10-27] MEDS: FLUTICASONE/VILANTEROL 200-25 MCG/DOSE IH SCH (09:32)
[2019-10-27] MEDS: RIVASTIGMINE 4.6 MG/24 HR PATCH.TD24 TD SCH (09:33)
[2019-10-27] MEDS: DORZOLAMIDE HCL 2% OPH SOLN 10 ML OU SCH ×2 (09:33→14:55)
[2019-10-27] MEDS: GABAPENTIN 300 MG CAPSULE PO SCH ×2 (09:45→14:55)
[2019-10-27] MEDS: ENOXAPARIN SODIUM INJ 40 MG/0.4 ML DISP.SYRIN SUBCUT SCH (09:45)
[2019-10-27] MEDS: TAMSULOSIN HCL 0.4 MG CAP.SR.24H PO SCH (09:45)
[2019-10-27] MEDS: DOCUSATE SODIUM 100 MG CAPSULE PO SCH (09:45)
[2019-10-27] MEDS: LEVETIRACETAM 500 MG TABLET PO SCH (09:45)
[2019-10-27] MEDS: FUROSEMIDE INJ/PF 20 MG/2 ML SDV IV SCH (09:45)
[2019-10-27] MEDS: ASPIRIN 81 MG TABLET, CHEWABLE PO SCH (09:45)
[2019-10-27] MEDS: DULOXETINE HCL 30 MG CAPSULE.DR PO SCH (09:45)
[2019-10-27] MEDS: FAMOTIDINE 20 MG TABLET PO SCH (09:45)
[2019-10-27 12:24] VITALS: BP 118/63
--- NOTE | 2019-10-27 13:00 | PDOC TRANSFER SUMMARY ---
Impression - Admit/DC Date/PCP Admission Date/Primary Care Provider: 10/16/19 14:15 SONYA SIMPSON Discharge Date: 10/27/19 - Discharge Diagnosis (1) Right humeral fracture Is this a current diagnosis for this admission?: Yes (2) Dementia Is this a current diagnosis for this admission?: Yes (3) Pneumonia Is this a current diagnosis for this admission?: Yes (4) Diabetes Is this a current diagnosis for this admission?: No - Assessment Summary: Patient will be admitted for broad-spectrum IV antibiotics. No leukocytosis. Chest x-ray is being repeated with 2 views Orthopedics will consult concerning humerus fracture 10/17/2019 Will have orthopedics see the patient on Saturday Adjust pain medication Continue IV antibiotics as well as home meds 10/18/2019 Temperature 97.8 pulse between 80 and 90, blood pressure 140/68 O2 sat 95% on room air Patient has significant dementia and I get the impression he was marginal before he came into the hospital as far as his care CBC is normal Chemistry looks normal blood sugars running in around 100 to 120 Blood culture showed no growth in 24 hours Will repeat 2 view chest x-ray tomorrow morning Will DC Dilaudid foreign exchange trader to Percocet Check Keppra level Continue IV Rocephin Appreciate orthopedics consult. We will follow their recommendations 10/19/2019 Evidently earlier this morning patient refused to go down with a transporter for his chest x-ray. Patient does not remember doing so. When I saw the patient in the room he was agreeable to going downstairs for his x-rays Since vital signs remained stable his saturation of oxygen is 93% on room air his pulse blood pressure and temperature are all normal Patient's fingerstick blood sugars are anywhere from 76-150. Patient currently is being covered with a sliding scale. I will resume his metformin today. he is currently on Rocephin for his pneumonia. In reviewing patient's two-view chest x-ray today I am not impressed that this is a new finding. However I will continue the Rocephin and err on the conservative side. Patient's pain is being controlled with 1 Percocet, and continuing his Duragesic patch which he was on prior to admission 25 mcq Recent wrist x-ray from today shows no acute fracture. Keppra level is pending Primary diagnosis is #1 fracture of the midshaft right humerus 2 question new onset pneumonia 3 chronic dementia 4 chronic pain Patient was living at home prior to admission and should be able to return home. Patient was seen by orthopedics and was basically waiting for shelter placement or rehab placement for the last several days. Patient had an episode of of hypoglycemia with his glucose getting down to 62 . A check of patient's hemoglobin A1c was found to be 5.8. Patient's metformin has been discontinued Orthopedics actually signed off of the case. Patient would benefit from a [place] brace, however this was not able to be obtained and therefore this will be placed on the patient with his follow-up appointment with orthopedics in the office. Patient is medically stable to go to rehab. This morning patient was sitting up in bed eating breakfast. - Additional Information Resuscitation Status: Do Not Resuscitate Discharge Diet: Diabetic Discharge Activity: Balance Activity w/Rest Referrals: CHANTELL VELASQUEZ MD [ASSOCIATE] - (Follow up in 2 weeks ) SY MENSAH PA [Primary Care Provider] - Follow up as needed JAVIER STOCKTON JR, DO [ACTIVE PROVISIONAL STAFF] - Home Medications: Aspirin [Moselle Aspirin] 81 mg PO DAILY 10/29/13 Latanoprost [Xalatan 0.005% Oph Soln 2.5 ml] 1 drop OP QHS 10/29/13 Budesonide/Formoterol Fumarate [Symbicort 160-4.5 Mcg Inhaler] 2 puff IH BID 07/09/18 Ergocalciferol (Vitamin D2) [Vitamin D2] 50,000 unit PO MO 07/09/18 Gabapentin 600 mg PO TID 07/09/18 Ascorbic Acid [Vitamin C 500 mg Tablet] 500 mg PO Q12 10/16/19 Atorvastatin Calcium [Lipitor 40 mg Tablet] 40 mg PO QHS 10/16/19 Atorvastatin Calcium [Lipitor 40 mg Tablet] 40 mg PO QHS 10/16/19 Cyanocobalamin (Vitamin B-12) [Vitamin B-12] 1,000 mcg PO DAILY 10/16/19 Dorzolamide HCl/Pf [Dorzolamide 2% Eye Drop] 1 drop OU TID 10/16/19 Duloxetine HCl [Cymbalta 30 mg Capsule.dr] 30 mg PO BID 10/16/19 Fentanyl [Duragesic 25 mcg/hr Transdermal Patch] 1 each TD Q3D 10/16/19 Fluticasone Propionate [Flonase Nasal [place] 50 Mcg/[place] 16 gm] 2 sprays NASL Q12HP PRN 10/16/19 Levetiracetam [Keppra 500 mg Tablet] 500 mg PO Q12 10/16/19 Magnesium Oxide [Mag-Ox 400 mg Tablet] 400 mg PO Q12 10/16/19 Multivit-Min/FA/Lycopen/Lutein [Men 50 Plus Multivitamin Tab] 1 each PO DAILY 10/16/19 Nystatin [Mycostatin Topical Powder 15 gm] 1 applic TP BID 10/16/19 Omeprazole 40 mg PO DAILY 10/16/19 Rivastigmine [Exelon 4.6 mg/24 Hr Transdermal Patch] 1 each TD DAILY 10/16/19 Tamsulosin HCl [Flomax 0.4 mg Cap.sr] 0.4 mg PO DAILY 10/16/19 Trazodone HCl [Desyrel 50 mg Tablet] 75 mg PO DAILY 10/16/19 Vit C/E/Zn/Coppr/Lutein/Zeaxan [Preservision Areds 2 Softgel] 1 each PO DAILY 10/16/19 Zinc Sulfate [Zinc-220] 220 mg PO QAM 10/16/19 Acetaminophen [Tylenol 325 mg Tablet] 650 mg PO Q4HP PRN tablet 10/23/19 History of Present Illiness History of Present Illness: PHILLY PIERRE is a 69 year old male who this morning around 0800 but up to use his walker when he was weak and fell landing on his right arm. He now with a midshaft humerus fracture. No angulation. According to the history the states that about Saturday he started coughing and seemed to become weaker. He normally is able to ambulate with a walker although not very well. No history of fever or chills. A portable chest x-ray done in the emergency room which is not very good shows a possible right lower lobe infiltrate. I am repeating this and getting a two-view. WBC count is normal. Patient is being admitted for possible pneumonia, patient will be started on broad-spectrum antibiotics until further results are in. Orthopedics has been consulted for his midshaft right humerus fracture Physical Exam Vital Signs: Temp Pulse Resp BP Pulse Ox 98.5 F 83 16 118/63 91 L 10/27/19 12:07 10/27/19 12:07 10/27/19 12:07 10/27/19 12:07 10/27/19 12:07 Intake & Output 10/26/19 10/27/19 10/28/19 06:59 06:59 06:59 Intake Total 3504 3314 Output Total 500 790 Balance 3004 2524 Weight 85.7 kg 84.5 kg Results Laboratory Results: WBC 9.6 10^3/uL (4.0-10.5) 10/25/19 11:50 RBC 4.28 10^6/uL (4.35-5.55) L 10/25/19 11:50 Hgb 10.5 g/dL (13.5-17.0) L 10/25/19 11:50 Hct 32.0 % (37.9-51.0) L 10/25/19 11:50 MCV 75 fl (80-97) L 10/25/19 11:50 MCH 24.4 pg (27.0-33.4) L 10/25/19 11:50 MCHC 32.6 g/dL (32.0-36.0) 10/25/19 11:50 RDW 16.5 % (11.5-14.0) H 10/25/19 11:50 Plt Count 441 10^3/uL (150-450) 10/25/19 11:50 Lymph % (Auto) 15.7 % (13-45) 10/25/19 11:50 [place] % (Auto) 11.1 % (3-13) 10/25/19 11:50 Eos % (Auto) 2.0 % (0-6) 10/25/19 11:50 Baso % (Auto) 0.9 % (0-2) 10/25/19 11:50 Absolute Neuts (auto) 6.7 10^3/uL (1.7-8.2) 10/25/19 11:50 Absolute Lymphs (auto) 1.5 10^3/uL (0.5-4.7) 10/25/19 11:50 Absolute Monos (auto) 1.1 10^3/uL (0.1-1.4) 10/25/19 11:50 Absolute Eos (auto) 0.2 10^3/uL (0.0-0.6) 10/25/19 11:50 Absolute Basos (auto) 0.1 10^3/uL (0.0-0.2) 10/25/19 11:50 Seg Neutrophils % 70.3 % (42-78) 10/25/19 11:50 PT 13.4 SEC (11.4-15.4) 10/16/19 11:05 INR 1.02 10/16/19 11:05 APTT 42.9 SEC (23.5-35.8) H 10/17/19 05:03 Sodium 131.9 mmol/L (137-145) L 10/25/19 11:50 Potassium 4.4 mmol/L (3.6-5.0) 10/25/19 11:50 Chloride 96 mmol/L (98-107) L 10/25/19 11:50 Carbon Dioxide 28 mmol/L (22-30) 10/25/19 11:50 Anion Gap 8 (5-19) 10/25/19 11:50 BUN 13 mg/dL (7-20) 10/25/19 11:50 Creatinine 0.50 mg/dL (0.52-1.25) L 10/25/19 11:50 Est GFR ( Amer) > 60 (>60) 10/25/19 11:50 Est GFR (MDRD) Non-Af > 60 (>60) 10/25/19 11:50 Glucose 101 mg/dL (75-110) 10/25/19 11:50 POC Glucose 117 mg/dL (70-110) H 10/26/19 20:11 Hemoglobin A1c % 5.8 % (4.7-6.0) 10/24/19 14:39 Lactic Acid 0.7 mmol/L (0.7-2.1) 10/16/19 15:28 Calcium 8.6 mg/dL (8.4-10.2) 10/25/19 11:50 Total Bilirubin 0.4 mg/dL (0.2-1.3) 10/16/19 11:05 Direct Bilirubin 0.0 mg/dL (0.0-0.4) 10/16/19 11:05 Neonat Total Bilirubin Not Reportable 10/16/19 11:05 Neonat Direct Bilirubin Not Reportable 10/16/19 11:05 Neonat Indirect Bili Not Reportable 10/16/19 11:05 AST 43 U/L (17-59) 10/16/19 11:05 ALT 28 U/L (<50) 10/16/19 11:05 Alkaline Phosphatase 169 U/L (38-126) H 10/16/19 11:05 Total Protein 7.0 g/dL (6.3-8.2) 10/16/19 11:05 Albumin 3.4 g/dL (3.5-5.0) L 10/16/19 11:05 TSH 3.12 uIU/mL (0.47-4.68) 10/16/19 11:05 Urine Color YELLOW 10/16/19 20:00 Urine Appearance CLEAR 10/16/19 20:00 Urine pH 5.0 (5.0-9.0) 10/16/19 20:00 Ur Specific [place] 1.015 10/16/19 20:00 Urine Protein NEGATIVE mg/dL (NEGATIVE) 10/16/19 20:00 Urine Glucose (UA) NEGATIVE mg/dL (NEGATIVE) 10/16/19 20:00 Urine Ketones TRACE mg/dL (NEGATIVE) H 10/16/19 20:00 Urine Blood NEGATIVE (NEGATIVE) 10/16/19 20:00 Urine Nitrite (Reflex) NEGATIVE (NEGATIVE) 10/16/19 20:00 Urine Bilirubin NEGATIVE (NEGATIVE) 10/16/19 20:00 Urine Urobilinogen NEGATIVE mg/dL (<2.0) 10/16/19 20:00 Leukocyte Esterase Rfl NEGATIVE (NEGATIVE) 10/16/19 20:00 Urine RBC (Auto) 4 /HPF 10/16/19 20:00 U Hyaline Cast (Auto) 1 /LPF 10/16/19 20:00 Urine WBC (Reflex) 1 /HPF 10/16/19 20:00 Urine Mucus (Auto) OCC /LPF 10/16/19 20:00 Urine Ascorbic Acid 40 (NEGATIVE) H 10/16/19 20:00 Levetiracetam 17.1 ug/mL (10.0-40.0) 10/18/19 11:32 Influenza A (Rapid) NEGATIVE (NEGATIVE) 10/16/19 11:05 Influenza B (Rapid) NEGATIVE (NEGATIVE) 10/16/19 11:05 Impressions: Chest X-Ray 10/16/19 00:00 IMPRESSION: Unchanged patchy right basilar opacities. Right Midshaft humeral fracture Chest X-Ray 10/16/19:44 IMPRESSION: Right lower lobe pneumonia with small parapneumonic effusion. Recommend follow-up to resolution. Forearm X-Ray 10/16/19:44 IMPRESSION: No definite acute bony abnormality of the right forearm. Decreased mineralization with degenerative changes about the elbow and wrist. Humerus X-Ray 10/16/19:44 IMPRESSION: Decreased mineralization with transversely oriented fracture about the midshaft right humerus. 1 shaft width lateral displacement of the distal fracture fragment. Humerus X-Ray 10/19/19 00:00 IMPRESSION: Unchanged alignment of the transverse displaced fracture through the humeral diaphysis. Wrist X-Ray 10/19/19 00:00 IMPRESSION: No acute osseous abnormality of the right wrist. Chest X-Ray 10/19/19 07:00 IMPRESSION: Unchanged radiographic appearance of the chest. Chest X-Ray 10/25/19 07:00 IMPRESSION: NO CHANGE IN APPEARANCE OF THE CHEST. Stroke Is this a Stroke Patient?: No Acute Heart Failure - Is this a Heart Failure Patient?: No
[2019-10-27] MEDS ORDERED: OXYCODONE-ACETAMINOPHEN 5-325 MG TABLET PO ONE (16:00)
== END 2019-10-27 16:48 | DRG 562 ==
LOC: ER 09:38 → EH 14:15 → 3S 23:06
PROVIDERS: ADMIT Family Medicine; ATTEND Family Medicine
DX: S42.321A Displaced transverse fracture of shaft of humerus, right arm, initial encounter for closed fracture (principal); J18.9 Pneumonia, unspecified organism; E11.649 Type 2 diabetes mellitus with hypoglycemia without coma; G20 Parkinson's disease; F02.80 Dementia in other diseases classified elsewhere, unspecified severity, without behavioral disturbance, psychotic disturbance, mood disturbance, and anxiety; W18.30XA Fall on same level, unspecified, initial encounter; G89.29 Other chronic pain; Z66 Do not resuscitate; E78.5 Hyperlipidemia, unspecified; J45.909 Unspecified asthma, uncomplicated; K21.9 Gastro-esophageal reflux disease without esophagitis; D64.9 Anemia, unspecified; W06.XXXA Fall from bed, initial encounter; Y92.230 Patient room in hospital as the place of occurrence of the external cause; Y92.89 Other specified places as the place of occurrence of the external cause; Z79.84 Long term (current) use of oral hypoglycemic drugs; Z79.82 Long term (current) use of aspirin; Z98.84 Bariatric surgery status; Z87.891 Personal history of nicotine dependence; Z88.6 Allergy status to analgesic agent; Z88.8 Allergy status to other drugs, medicaments and biological substances; Z91.81 History of falling
CPT/HCPCS: 36415; 71045; 71046; 80048; 80053; 80177; 81001; 82962; 83036; 83605; 84443; 85025; 85610; 85730; 87040; 87804; 93005; 93010; 93306; 94799; 96365; 96375; 99285; J0696; J1170; J1650; J1940; J1956; J3010; J3490; J7030; J7050; J7060; L4386